=== PATIENT | female | born 1955 | race Caucasian/White ===

== ENCOUNTER → 2016-08-17 | Outpatient (CLI) | payer OTHER ==
[~2016-08-17] MED LIST: CLB/200 PO; FERR325T51 PO; FRS/40 PO; GADAVIST IV PRN; LOSA50TA6 PO; MULT-506 PO; PRLSR20 PO
--- NOTE | 2016-08-17 08:04 | DIAGNOSTIC IMAGING REPORT ---
MRI chest, dimension CHEST COMBO CLINICAL HISTORY: MUSCLE Weakness, r ARM ATROPHY neuropathy TECHNIQUE: Multi axial MRI acquisition pre and postcontrast administration COMPARISON STUDY: None FINDINGS: Signal characteristics of all major soft tissue and osseous structures of the upper chest are unremarkable. Visualized components of the brachial plexus are unremarkable. Muscular structures appear symmetric. There is no evidence for abnormal mass or collection. There is no significant axillary adenopathy. Postcontrast images are considered negative for abnormal postcontrast enhancement. Pulmonary apices are considered clear. IMPRESSION: Negative study Electronically signed by: Sarwat Rogers M.D. 08/17/2016 8:03 AM Dictated Date/Time: 08/17/2016 7:58 AM
== END | disposition home or self-care (01) ==
LOC: C.MRIBC 06:35
PROVIDERS: ATTEND Psychiatry & Neurology Neurology
DX: M62.81 Muscle weakness (generalized) (principal)

== ENCOUNTER 2017-09-13 09:56 | Emergency (ER) | payer OTHER ==
[~2017-09-13] VITALS: Ht 167.6 cm; Wt 144.0 kg
[~2017-09-13 09:56] MED LIST changes: -GADAVIST IV PRN
[2017-09-13 10:01] VITALS: TEMP 36.9; Ht 167.6 cm; Wt 144.0 kg
[2017-09-13] MEDS ORDERED: LIDOCAINE/EPINEPHRINE 1% 20 ML VIAL INFIL ONE (10:15)
[2017-09-13] MEDS ORDERED: RANI150T85 PO (10:43)
[2017-09-13] MEDS ORDERED: FRRS300 PO (10:43)
--- NOTE | 2017-09-13 11:11 | DIAGNOSTIC IMAGING REPORT ---
HEAD WITHOUT CONTRAST (CT) CLINICAL HISTORY: 62 years-old Female presenting with fall . TECHNIQUE: Multidetector CT imaging of the head was performed without the use of intravenous contrast. IV contrast: None. A dose lowering technique was used consistent with the principles of ALARA (as low as reasonably achievable). COMPARISON: None. CT DOSE (mGy.cm): The estimated cumulative dose is 690.05 mGycm. FINDINGS: Produce Department Supervisor topogram: Unremarkable. Ventricles and sulci normal in size. Brain parenchyma normal in appearance with preserved cardenas-white differentiation. No mass effect or midline shift. No hemorrhage or acute territorial infarct. No extra-axial fluid collection. Paranasal sinuses and mastoid air cells clear. Calvarium intact. IMPRESSION: 1. No acute intracranial abnormality. Electronically signed by: Tay Joshi M.D. 09/13/2017 11:10 AM Dictated Date/Time: 09/13/2017 11:08 AM
--- NOTE | 2017-09-13 11:13 | DIAGNOSTIC IMAGING REPORT ---
CT OF THE CERVICAL SPINE CLINICAL HISTORY: Neck pain status post trauma COMPARISON STUDY: No previous studies for comparison. CT DOSE: 446.00 mGycm TECHNIQUE: CT scan of the cervical spine was performed from the skull base to the thoracic inlet. Images are reviewed in the axial, sagittal, and coronal planes. IV contrast was not administered for this examination. A dose lowering technique was utilized adhering to the principles of ALARA. FINDINGS: The visualized portions of the lung apices reveal no evidence of pneumothorax. There is a minimal right mastoid effusion. There is a small calcification anterior to the medulla, possibly vascular. The prevertebral soft tissues are normal. No fractures or subluxations are visualized. There are multilevel degenerative changes. There are calcifications within the ligamentum nuchae. IMPRESSION: No evidence of acute fracture or traumatic subluxation. Electronically signed by: Con White M.D. 09/13/2017 11:12 AM Dictated Date/Time: 09/13/2017 11:09 AM
[2017-09-13 12:15] VITALS: BP 203/93; PULSE 87; O2SAT 93
[2017-09-13] MEDS ORDERED: DIPHTHERIA/TETANUS/PERTUSSIS 0.5 ML SYR/VIAL IM. ONE (12:15)
--- NOTE | 2017-09-13 15:01 | EMERGENCY ROOM VISIT NOTE ---
History Report prepared by Geraldoibjohnson: Miki Negrete Under the Supervision of: Dr. Abdon Leong D.O. First contact with patient: 09:59 Chief Complaint: FALL Stated Complaint: FALL/LACERATION History of Present Illness The patient is a 62 year old female who presents to the Emergency Room with complaints of constant head pain s/p fall occurring just prior to arrival. She rates her pain as a 7/10 in severity. Pain is sharp in nature. The patient has a history of ALS, and has chronic right sided weakness. She was initially diagnosed 11 months ago, and has been having worsened weakness ever since. The patient states that she was walking at [facility] when she fell. She states that her right leg gave out on her, which is fairly normal for her. She states that she landed on her head, but did not lose consciousness. Pt denies neck pain, change in vision, fevers, chest pain, shortness of breath, nausea, vomiting, diarrhea, pain with urination, and melena. Source of History: patient Onset: Just prior to arrival Position: head Symptom Intensity: 7/10 Timing: constant Associated Symptoms: No LOC, No neck pain, No chest pain, No SOB, No nausea , No vomiting, No melena, No diarrhea, No urinary symptoms Review of Systems See HPI for pertinent positives & negatives. A total of 10 systems reviewed and were otherwise negative. Past Medical & Surgical Medical Problems: (1) ALS (amyotrophic lateral sclerosis) Family History No pertinent family history stated. Social History Smoking Status: Never Smoker Housing Status: lives with family Current/Historical Medications Scheduled Celecoxib (CeleBREX), 200 MG PO HS Ferrous Sulfate (Ferrous Sulfate), 325 MG PO WK Furosemide (Lasix), 40 MG PO HS Losartan Potassium (Cozaar), 50 MG PO HS Multivitamin (Multivitamin), 1 TAB PO HS Ranitidine (Zantac), 150 MG PO DAILY@1600 Allergies Coded Allergies: CARLOS Inhibitors (Verified Allergy, Mild, UNKNOWN, 09/13/17) Fluconazole (Unverified Allergy, Unknown, ., 09/13/17) Physical Exam Vital Signs Date Time Temp Pulse Resp B/P (MAP) Pulse Ox O2 Delivery O2 Flow Rate FiO2 09/13/17 12:15 87 203/93 93 Room Air 09/13/17 10:42 52 20 192/98 97 09/13/17 10:01 36.9 67 18 194/123 97 Physical Exam GENERAL: alert, well appearing, well nourished, no distress, non-toxic HEAD: normal cephalic. 5 cm laceration with venous oozing over the right forehead. EYE EXAM: normal conjunctiva, PERRL and EOM's grossly intact OROPHARYNX: no exudate, no erythema, lips, buccal mucosa, and tongue normal and mucous membranes are moist EARS: TMs clear b/l NECK: supple, no nuchal rigidity, no adenopathy, non-tender CHEST: stable to compression anteriorly and posteriorly LUNGS: clear to auscultation. Normal chest wall mechanics HEART: no murmurs, S1 normal and S2 normal ABDOMEN: abdomen soft, non-tender, normo-active bowel sounds, no masses, no rebound or guarding. PELVIS: stable to compression anteriorly and posteriorly BACK: Back is symmetrical on inspection and there is no deformity, no midline tenderness, no CVA tenderness. UPPER EXTREMITIES: full active and passive range of motion of all joints without tenderness to palpation LOWER EXTREMITIES: full active and passive range of motion of all joints without tenderness to palpation NEURO EXAM: Normal sensorium, cranial nerves II-XII grossly intact, normal speech, GCS: 15. Weakness with grasp, flexion, extension of the right upper and lower extremity. Medical Decision & Procedures ER Provider Diagnostic Interpretation: Radiology results as stated below per my review and the radiologist's interpretation: HEAD WITHOUT CONTRAST (CT) FINDINGS: Wet Process Miller topogram: Unremarkable. Ventricles and sulci normal in size. Brain parenchyma normal in appearance with preserved cardenas-white differentiation. No mass effect or midline shift. No hemorrhage or acute territorial infarct. No extra-axial fluid collection. Paranasal sinuses and mastoid air cells clear. Calvarium intact. IMPRESSION: 1. No acute intracranial abnormality. Electronically signed by: Tay Joshi M.D. 09/13/2017 11:[address] OF THE CERVICAL SPINE FINDINGS: The visualized portions of the lung apices reveal no evidence of pneumothorax. There is a minimal right mastoid effusion. There is a small calcification anterior to the medulla, possibly vascular. The prevertebral soft tissues are normal. No fractures or subluxations are visualized. There are multilevel degenerative changes. There are calcifications within the ligamentum nuchae. IMPRESSION: No evidence of acute fracture or traumatic subluxation. Electronically signed by: Con White M.D. 09/13/2017 11:12 AM Medications Administered Medications (Trade) Dose Ordered Sig/Thalia Route Start Time Stop Time Status Last Admin Dose Admin Diphtheria/ Pertussis/Tetanus Vacc (Adacel Inj) 0.5 ml ONCE ONCE IM. 09/13/17 12:15 09/13/17 12:16 DC 09/13/17 12:41 0.5 ML ED Course ED COURSE: Vital signs were reviewed and showed hypertension The patients medical record was reviewed The above diagnostic studies were performed and reviewed. ED treatments and interventions as stated above. 1005: The patient was evaluated in room B8. A complete history and physical examination was performed. 1015: Ordered Xylocaine/Epine 1% Inj 20 mL INFIL. 1026: I checked in on the patient. She is having her laceration repaired. 1150: Upon reevaluation, the patient is resting comfortably. I discussed my findings with the patient and she understands and agrees with the treatment plan. Based on the patients age, coexisting illnesses, exam and lab findings the decision to treat as an outpatient was made. The patient remained stable while under my care. The patient appeared well at the time of discharge. Medical Decision Differential diagnoses include major intracranial, cervical, spinal, thoracic, abdominal, pelvic and neurologic injury. Fracture, contusion, sprain, strain, laceration, abrasions included as well. Patient is a 62-year-old female who presents the ER following a mechanical fall at [facility]. She has a chronic right-sided weakness due to ALS. Nothing has changed. Sutures were placed for laceration on the right forehead. This was updated. CTs of the head and cervical spine were negative. Patient had no other complaints. Offered x-rays of the right knee which had a small contusion on repeat evaluation. They declined. Patient was discharged with walker to follow-up with PCP as an outpatient. She does normally use a walker had no problem ambulating within the room. Discussed with Pt concerning signs and symptoms to watch out for. Pt was instructed to follow up with their PCP and discussed with the patient their option to return to the ED at anytime for persistent or worsening symptoms. The appropriate anticipatory guidance and out- patient management, including indications for return to the emergency department , were explained at length to the patient and understood. Medication Reconcilliation Current Medication List: was personally reviewed by me Blood Pressure Screening Patient's blood pressure: Elevated blood pressure Blood pressure disposition: Referred to PCP Impression Primary Impression: Fall Additional Impression: Laceration of head Scribe Attestation The scribe's documentation has been prepared under my direction and personally reviewed by me in its entirety. I confirm that the note above accurately reflects all work, treatment, procedures, and medical decision making performed by me. Departure Information Dispostion Home / Self-Care Referrals Heidi Ireland D.O. (PCP) Forms HOME CARE DOCUMENTATION FORM, IMPORTANT VISIT INFORMATION Patient Instructions ED Laceration All, Falls Prevent Home, [facility] Additional Instructions Please follow up with your primary care doctor with in the next 24 hours. Any worsening of your symptoms, please return to the ED immediately. This includes any fevers greater than 100.4, worsening pain, chest pain, shortness breath, persistent nausea, vomiting, unable to eat or drink, or any other concerning signs or symptoms from your standpoint. Please have sutures removed within 7 days. Any surrounding erythema/redness, increased swelling, drainage please return to the ER for evaluation. Problem Qualifiers Primary Impression: Fall Encounter type: initial encounter Qualified Codes: W19.XXXA - Unspecified fall, initial encounter Additional Impression: Laceration of head Encounter type: initial encounter Location of open wound of head: unspecified part of head Foreign body presence: without foreign body Qualified Codes: S01.91XA - Laceration without foreign body of unspecified part of head, initial encounter
--- NOTE | 2017-09-14 07:51 | EMERGENCY ROOM VISIT NOTE ---
ED Visit Note 62-year-old female who I was asked by Dr. Leong, ED attending physician, to perform a right forehead laceration repair. Please see his dictation for further treatment and final disposition. PROCEDURE NOTE: Examination of the right forehead region shows a 5 cm laceration with moderate oozing. No hematoma formation noted. The patient provided verbal consent for laceration repair under local anesthesia. Using lidocaine 1% with epinephrine, good local anesthesia was administered. Exploration of the wound does not show any active bleeding, but otherwise generalized venous oozing. No foreign debris is noted. After thoroughly irrigating the wound, the wound was then approximated using 5-0 nylon simple interrupted sutures. A bacitracin pressure dressing was applied. The patient tolerated the procedure well with minimal bleeding from the procedure itself. She did have a moderate amount of bleeding prior to my procedure.
== END 2017-09-13 12:30 | disposition home or self-care (01) ==
LOC: C.EDB 09:56
DX: S01.81XA Laceration without foreign body of other part of head, initial encounter (principal); W19.XXXA Unspecified fall, initial encounter; Y92.512 Supermarket, store or market as the place of occurrence of the external cause; G12.21 Amyotrophic lateral sclerosis; Z79.899 Other long term (current) drug therapy; Z88.8 Allergy status to other drugs, medicaments and biological substances

== ENCOUNTER 2019-03-28 23:37 | Inpatient (IN) ==
[2019-03-28] MEDS ORDERED: SODIUM CHLORIDE 0.9% 1000ML 1,000 ML IV SCH (23:45)
[2019-03-29 00:55] LABS: Basophils # (auto) 0.02 K/uL (0-0.2); Basophils % (auto) 0.3 %; Eosinophils # (auto) 0.01 K/uL (0-0.5); Eosinophils % (auto) 0.2 %; Hematocrit (blood only) 45.9 % (37-47); Hemoglobin 15.7 g/dL (12.0-16.0); Immature Granulocytes # (auto) 0.11 K/uL (0.00-0.02); Immature Granulocytes % (auto) 1.7 %; Lymphocytes # (auto) 0.67 K/uL (1.2-3.4); Lymphocytes % (auto) 10.1 %; Mean Corpuscular Hgb Conc 34.2 g/dL (32-36); Mean Corpuscular Volume 93.5 fL (80-100); Monocytes # (auto) 0.49 K/uL (0.11-0.59); Monocytes % (auto) 7.4 %; Neutrophils # (auto) 5.31 K/uL (1.4-6.5); Neutrophils % (auto) 80.3 %; Platelet Count 248 K/uL (130-400); RDW Coefficient of Variation 14.8 % (11.5-14.5); RDW Standard Deviation 50.8 fL (36.4-46.3); Red Blood Count 4.91 M/uL (4.2-5.4); White Blood Count 6.61 K/uL (4.8-10.8)
[2019-03-29 01:20] LABS: Albumin Globulin Ratio 0.8 (0.9-2); Albumin Level 2.8 gm/dl (3.4-5.0); BUN Creatinine Ratio 33.7 (10-20); Calcium 8.8 mg/dl (8.5-10.1); Creatinine Clr Calc Pharmacy 115.4 ml/min; Est GFR (African American) 112.9; Est GFR (Non-African American) 97.4; Globulin 3.5 gm/dl (2.5-4.0); Magnesium 2.2 mg/dl (1.8-2.4); Potassium 2.6 mmol/L (3.5-5.1); Total Protein 6.3 gm/dl (6.4-8.2)
[2019-03-29 01:36] LABS: Thyroid Stimulating Hormone 1.12 uIu/ml (0.300-4.500); Troponin I 0.078 ng/ml (0-0.045)
[2019-03-29 02:14] LABS: Appearance Urine Clear (Clear); Blood Urine Trace (Negative); Color Urine Amber; Glucose Urine UA Trace (Negative); Leukocyte Esterase Urine Trace (Negative); Nitrite Urine Positive (Negative); Protein Urine 2+ (Negative); Urobilinogen Urine Positive (Negative); pH Urine 6.5 (4.5-7.5)
[2019-03-29 02:19] LABS: Bilirubin Urine 3+ (Negative); Ictotest Urine Positive (Negative)
[2019-03-29 02:20] LABS: Ketones Urine 3+ (Negative)
[2019-03-29 02:28] LABS: Bacteria Urine 2+ (Negative); Epithelial Cell Urine 20-30 /lpf (0-5); Hyaline Casts Urine 0-5 /lpf (0-5); RBC Urine 0-4 /hpf (0-4)
[2019-03-29] MEDS ORDERED: cefTRIAXone SODIUM 2,000 MG/70 ML BAG IV STA (02:41)
[2019-03-29] MEDS ORDERED: POTASSIUM CHLORIDE 20 MEQ TABCR PO STA (03:35)
[2019-03-29 04:03] LABS: Partial Thromboplastin Time 28.2 Seconds (21.0-31.0)
--- NOTE | 2019-03-29 04:20 | History & Physical Report ---
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 intake secondary to patient's unhappiness over recent pured diet change given aspiration concerns. chronic diastolic heart failure (EF 55%, TTE 2018), patient clinically dry hypertension, slight elevation at the ER (patient refusing home meds the last few weeks as per records) Troponin elevation possibly secondary to above ALS, progression over the last few weeks Possible suicidality [verbalized suicidality by patient yesterday as per SNF account; unexplained ecchymosis forehead (?self-inflicted); patient unable to corroborate suicidality allegations given encephalopathy at time of exam) Medical telemetry Follow urine cultures, IV Ceftriaxone Dextrose water IVF, replace potassium Monitor BP, initiate clonidine patch if still uncontrolled Follow troponin Psych consult RE possible suicidality, suicide precautions for now Consider inpatient palliative care consult for progressive ALS if patient and family agreeable once mentation back to baseline DVT prophylaxis. Lovenox subcu DNR as per patient previous wishes as per [facility] Attempted to call patient's sister/POA (Ms. Nilda Don, contact #[phone]) over the phone to give update on plan of care. No answer; left voice message for call back. History of Present Illness Chief Complaint: Suicidality as per records Primary Care Provider: Alfonso [facility] History obtained from patient, [facility] staff , and records. Limited history from patient given disoriented and almost nonverbal state. 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 Recent confinement last April 2018 for ambulatory dysfunction secondary to progressive ALS. Patient discharged to [facility] SNF. As per [facility] animal humane agent supervisor, patient upset the last few weeks because of ALS progression. Pured diet recommended because of aspiration risk. Patient has been refusing her home meds the last few weeks as per records. Yesterday, patient verbalized to staff that she wanted to kill herself and that she had a plan. Patient sent to the ER for evaluation. Patient noted to be disoriented at the ER. Given IV ceftriaxone for possible UTI. Aspiration concerns from RAILROAD OPERATOR after attempt to give oral potassium replacement. Medical History as above Seen by [facility] last January 2019 outpatient for stool in the vagina since December 2018. 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 CT abdomen/pelvis IV and rectal contrast recommendation to be done at a hospital secondary to patient's comorbidities pending scheduling as per outpatient notes. 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 Allergies Allergy/AdvReac Type Severity Reaction Status Date / Time CARLOS Inhibitors Allergy Mild UNKNOWN Verified 03/29/19 02:33 fluconazole Allergy Unknown ON Verified 03/29/19 02:33 HEARTHSIDE LIST Home Medications Home Medications Medication Instructions Recorded Confirmed Type Barrier Cream 1 applic TOPICAL TID 03/29/19 03/29/19 History acetaminophen 650 mg PO Q6H PRN 03/29/19 03/29/19 History acetaminophen 650 mg PO Q8 PRN 03/29/19 03/29/19 History aspirin [Aspirin Childrens] 81 mg PO DAILY 03/29/19 03/29/19 History atorvastatin 40 mg PO DAILY 03/29/19 03/29/19 History bisacodyl [Dulcolax (bisacodyl)] 10 mg [place] DAILY PRN 03/29/19 03/29/19 History celecoxib [Celebrex] 200 mg PO DAILY 03/29/19 03/29/19 History ferrous sulfate 325 mg PO WK 03/29/19 03/29/19 History food supplemt, lactose-reduced 1 ea PO .DAILY AT 1500 03/29/19 03/29/19 History [Boost] furosemide [Lasix] 20 mg PO DAILY 03/29/19 03/29/19 History losartan [Cozaar] 50 mg PO DAILY 03/29/19 03/29/19 History magnesium hydroxide [Milk of 30 ml PO DAILY PRN 03/29/19 03/29/19 History Magnesia] magnesium oxide 400 mg PO DAILY 03/29/19 03/29/19 History meclizine 25 mg PO TID PRN 03/29/19 03/29/19 History multivit,stress formula-zinc 1 tab PO DAILY 03/29/19 03/29/19 History [Stress Formula with Zinc] multivitamin,tx-minerals 1 cap PO DAILY 03/29/19 03/29/19 History [Multi-Vitamin HP/Minerals] ostomy supplies [Skin Prep Wipes] 03/29/19 03/29/19 History phenol [Chloraseptic Throat [place]] 1 spray MUCOUS MEMBRANE Q8 PRN 03/29/19 03/29/19 History polyethylene glycol 3350 [Miralax] 17 g PO Q OTHER DAY 03/29/19 03/29/19 History ranitidine HCl 150 mg PO DAILY 03/29/19 03/29/19 History scopolamine base [Transderm-Scop] 1 patch TRANSDERMAL Q3D 03/29/19 03/29/19 History sennosides-docusate sodium 1 tab PO BID 03/29/19 03/29/19 History [Senna-S] sodium phosphates [Fleet Enema] 118 ml [place] DAILY PRN 03/29/19 03/29/19 History Past Med/Surg History Medical History Osteoarthritis (Chronic) Diastolic heart failure (Chronic) HTN (hypertension) (Chronic) ALS (amyotrophic lateral sclerosis) (Chronic) Surgical History History of bilateral breast reduction surgery (Resolved) History of right oophorectomy (Resolved) Hx laparoscopic cholecystectomy (Resolved) History of endometrial ablation (Resolved) Family History Other No significant family history Social History Preferred Language: Vietnamese Communication Ability: Unable Communication Ability Comment: mostly nonverbal. hx ALS Visual Impairment: No Limitations Bulk Delivery Driver Required: No Beliefs That Will Affect Care: None marital status: Single Current Living Situation: Senior Care current occupational status: unemployed Feels Safe at Home: Yes Smoking Status: Unknown if ever smoked Hx Alcohol Use: No Hx Substance Use: No Review of Systems Review of Systems: Could not be reliably obtained Physical Exam Physical Exam: GENERAL: Disoriented, occasional grunting, no respiratory distress, obese SKIN: Normal color, warm HEENT: Ecchymosis frontal area, pink palpebral conjunctivae, no ptosis, dry buccal mucosa NECK : Supple, short neck, no tenderness CHEST : Decreased breath sounds, no tenderness HEART : RRR, no obvious murmurs ABDOMEN: Some distention, nontender EXTREMITIES : Minimal LE swelling, no LE tenderness, no other conspicuous deformities noted NEUROLOGIC : incoherent, no facial asymmetry, gait and stance not assessed. Results & Data Vital Signs (Past 12 Hours) Vital Signs Temp Pulse Pulse Resp BP BP Pulse Ox 03/29/19 04:13 101 H 20 155/98 H 94 03/29/19 02:07 93 H 20 128/81 98 03/28/19 23:53 36.8 C 89 89 16 128/73 128/73 94 Laboratory Results Laboratory Results WBC 6.61 K/uL (4.8-10.8) 03/29/19 00:38 RBC 4.91 M/uL (4.2-5.4) 03/29/19 00:38 Hgb 15.7 g/dL (12.0-16.0) 03/29/19 00:38 Hct 45.9 % (37-47) 03/29/19 00:38 MCV 93.5 fL (80-100) 03/29/19 00:38 MCH 32.0 pg (25-34) 03/29/19 00:38 MCHC 34.2 g/dL (32-36) 03/29/19 00:38 RDW Std Deviation 50.8 fL (36.4-46.3) H 03/29/19 00:38 RDW Coeff of Noris 14.8 % (11.5-14.5) H 03/29/19 00:38 Plt Count 248 K/uL (130-400) 03/29/19 00:38 MPV 10.0 fL (7.4-10.4) 03/29/19 00:38 Immature Gran % (Auto) 1.7 % 03/29/19 00:38 Neut % (Auto) 80.3 % 03/29/19 00:38 Lymph % (Auto) 10.1 % 03/29/19 00:38 [place] % (Auto) 7.4 % 03/29/19 00:38 Eos % (Auto) 0.2 % 03/29/19 00:38 Baso % (Auto) 0.3 % 03/29/19 00:38 Immature Gran # (Auto) 0.11 K/uL (0.00-0.02) H 03/29/19 00:38 Neut # (Auto) 5.31 K/uL (1.4-6.5) 03/29/19 00:38 Lymph # (Auto) 0.67 K/uL (1.2-3.4) L 03/29/19 00:38 [place] # (Auto) 0.49 K/uL (0.11-0.59) 03/29/19 00:38 Eos # (Auto) 0.01 K/uL (0-0.5) 03/29/19 00:38 Baso # (Auto) 0.02 K/uL (0-0.2) 03/29/19 00:38 APTT 28.2 Seconds (21.0-31.0) 03/29/19 00:38 PTT Ratio 1.0 03/29/19 00:38 Sodium 151 mmol/L (136-145) H 03/29/19 00:38 Potassium 2.6 mmol/L (3.5-5.1) L 03/29/19 00:38 Chloride 110 mmol/L (98-107) H 03/29/19 00:38 Carbon Dioxide 32 mmol/L (21-32) 03/29/19 00:38 Anion Gap 9.0 (3-11) 03/29/19 00:38 BUN 20 mg/dl (7-18) H 03/29/19 00:38 Creatinine 0.58 mg/dl (0.6-1.2) L 03/29/19 00:38 Est Cr Clr Drug Dosing 115.4 ml/min 03/29/19 00:38 Est GFR ( Amer) 112.9 03/29/19 00:38 Est GFR (Non-Af Amer) 97.4 03/29/19 00:38 BUN/Creatinine Ratio 33.7 (10-20) H 03/29/19 00:38 Glucose 98 mg/dl (70-99) 03/29/19 00:38 Calcium 8.8 mg/dl (8.5-10.1) 03/29/19 00:38 Magnesium 2.2 mg/dl (1.8-2.4) 03/29/19 00:38 Total Bilirubin 2.0 mg/dl (0.2-1) H 03/29/19 00:38 AST 20 U/L (15-37) 03/29/19 00:38 ALT 13 U/L (12-78) 03/29/19 00:38 Alkaline Phosphatase 128 U/L (45-117) H 03/29/19 00:38 Troponin I 0.078 ng/ml (0-0.045) H* 03/29/19 00:38 Total Protein 6.3 gm/dl (6.4-8.2) L 03/29/19 00:38 Albumin 2.8 gm/dl (3.4-5.0) L 03/29/19 00:38 Globulin 3.5 gm/dl (2.5-4.0) 03/29/19 00:38 Albumin/Globulin Ratio 0.8 (0.9-2) L 03/29/19 00:38 Lipase 44 U/L (73-393) L 03/29/19 00:38 TSH 1.120 uIu/ml (0.300-4.500) 03/29/19 00:38 Urine Color Antonia 03/29/19 02:00 Urine Appearance Clear (Clear) 03/29/19 02:00 Urine pH 6.5 (4.5-7.5) 03/29/19 02:00 Ur Specific [place] 1.020 (1.000-1.030) 03/29/19 02:00 Urine Protein 2+ (Negative) H 03/29/19 02:00 Urine Glucose (UA) Trace (Negative) H 03/29/19 02:00 Urine Ketones 3+ (Negative) H 03/29/19 02:00 Urine Blood Trace (Negative) H 03/29/19 02:00 Urine Nitrite Positive (Negative) A 03/29/19 02:00 Urine Bilirubin 3+ (Negative) H 03/29/19 02:00 Urine Urobilinogen Positive (Negative) H 03/29/19 02:00 Ur Leukocyte Esterase Trace (Negative) H 03/29/19 02:00 Urine RBC 0-4 /hpf (0-4) 03/29/19 02:00 Urine WBC 5-10 /hpf (0-5) H 03/29/19 02:00 Ur Epithelial Cells 20-30 /lpf (0-5) H 03/29/19 02:00 Urine Bacteria 2+ (Negative) H 03/29/19 02:00 Hyaline Casts 0-5 /lpf (0-5) 03/29/19 02:[address] head initial read: No acute intracranial hemorrhage, skull fracture CXR as per my interpretation: Cardiomegaly, atelectasis EKG as per my interpretation : Rate 90, NSR, normal axis, LVH, ST depression lateral leads, inferior infarct, PVCs
[2019-03-29] MEDS: POTASSIUM CHLORIDE / WTR 10 MEQ/100 ML PLCT IV SCH ×8 (04:23→16:08)
[2019-03-29] MEDS ORDERED: METOPROLOL TARTRATE 1 MG/ML VIAL IV STA (04:40)
[2019-03-29 04:58] LABS: Troponin I 0.071 ng/ml (0-0.045)
[2019-03-29] MEDS ORDERED: NITROGLYCERIN SL 0.4 MG/TAB TAB SL PRN (06:00)
[2019-03-29] MEDS ORDERED: POTASSIUM CHLORIDE 40 MEQ in DEXTROSE 5% 1,000 ML IV SCH (06:00)
[2019-03-29] MEDS ORDERED: PROMETHAZINE HCL 12.5 MG in SODIUM CHLORIDE 0.9% 50 ML IV PRN (06:00)
[2019-03-29] MEDS ORDERED: ACETAMINOPHEN 325 MG TAB PO PRN (06:00)
--- NOTE | 2019-03-29 07:10 | CT Scan Report ---
CT SCAN OF THE BRAIN WITHOUT IV CONTRAST CLINICAL HISTORY: Trauma. Fall. COMPARISON STUDY: CT of the brain dated 04/25/2018. TECHNIQUE: Unenhanced axial CT scan of the brain is performed from the vertex to the skull base. A d ose lowering technique was utilized adhering to the principles of ALARA. CT DOSE: 626.55 mGy.cm FINDINGS: Brain parenchyma: The brain parenchyma is normal in appearance. There is no hemorrhage, mass effect, or evidence of acute territorial ischemia by CT criteria. Edwards-white matter differentiation is preser yared. No extra-axial fluid collection is seen. Ventricles, sulci, cisterns: Normal in configuration. Intracranial vasculature: The visualized intracranial vasculature at the skull base is normal in appe arance. Calvarium: There is no depressed calvarial fracture. Sinuses and mastoids: The visualized paranasal sinuses are clear. The mastoid air cells are well pneu matized. Orbits: The bony orbits are grossly intact. IMPRESSION: There is no hemorrhage, mass effect, or evidence of acute territorial ischemia by CT anand salgado. Electronically signed by: Mickey Schroeder M.D. 03/29/2019 7:09 AM
--- NOTE | 2019-03-29 07:35 | XRay Report ---
XR chest 1V portable HISTORY: Altered mental status. COMPARISON: Chest 04/26/2018. FINDINGS: No pneumothorax. No pleural effusions. The heart remains mildly enlarged. There are few lori ear densities within the left mid to lower lung zone and right lung base. This has progressed but fav or subsegmental atelectasis. No evidence for pulmonary edema. Prior cholecystectomy. IMPRESSION: 1. A few linear densities within the left midlung zone and lung bases which has slightly progressed. This favors subsegmental atelectasis. 2. Stable cardiomegaly. Electronically signed by: Donn Conti M.D. 03/29/2019 7:33 AM
[2019-03-29] MEDS: ENOXAPARIN INJ 30 MG/0.3 ML SYR SQ SCH (07:47)
[2019-03-29] MEDS ORDERED: MICONAZOLE NITRATE POWDER 43 GM EXT PRN (07:59)
[2019-03-29] MEDS ORDERED: INFLUENZA ADMINISTRATION CHARGE ONE (08:00)
[2019-03-29] MEDS ORDERED: INFLUENZA VIRUS QUAD VACCINE 0.5 ML SYR IM ONE (08:00)
--- NOTE | 2019-03-29 10:06 | Psychiatric Consultation ---
Date of Consultation March 29, 2019 Impression / Recommendations Impression 63-year-old female admitted medically on 03/29/19 due to []. Psychiatric nurse liaison had a chance to speak with the patient's sister/POA prior to this provider's assessment. See liaison note for full details. In summary, []. Psychiatric nurse liaison is planning to call [facility] to gather additional information from their field assessment, as situation leading to concerns of suicidality remains unclear. Due to patient's neuromuscular disorder, it is difficult to obtain clear affirmation or denial of current suicidality. Pt is reportedly non-verbal, and it is this provider's perception that her inflection with which she responds to questions in the affirmative was not significantly different than her negative response to inquiries. Since it cannot be clearly determined if patient is actively suicidal, her situation becomes one of managing risks. It is unfortunate, but her physical condition does not seem to be one that would permit her to demonstrate active behavior that would risk significant harm or . Mental health laws require consideration of the least restrictive setting that can adequately manage the patient's safety concerns - and at this time it is believed that the least restrictive discharge setting that could adequately manage her mental health needs would be returning [facility]. It is perceived that the deeper issue at this time is the transition to an assisted living setting and reported difficulty with nutritional intake and medication compliance due to risk of aspiration. The intent of refusing food/medications (as per sister), was reported to be more directly related to discomfort and choking than an intent to end her life. With this report, it would be recommended that the issue be pursued with discussion of interventions that can improve patient's quality of life (PICC line, speech therapy evaluation, etc), which of course would need to be discussed with the family. Pt has reportedly requested DNR/DNI status, per [facility] - and in the absence of clear suicidal intent (as well as reported mechanical difficulties), it does not seem appropriate to pursue medications or nutritional intake against patient's wishes. Could consider palliative care consultation if this is considered to be a significant concern for ongoing treatment. Based on limited perceived risk of harm to self or others, no previous psychiatric history, no prior suicide attempts, and supports who verbalize limited concern for the patient's safety, it does not seem appropriate to pursue inpatient psychiatric treatment at this time. Pt's sister/POA denied any significant mood concerns, and in combination with mechanical difficulties with medications/food, it does not seem necessary to begin psychiatric medications at this point in her hospitalization - if even indicated at all. Given limited physical capabilities and proximity of patient's room to nursing area, it would seem reasonable to discontinue 1:1 observation as it relates to suicide precautions. Will continue to be available for any additional questions regarding the patient's treatment plan. Dr. Nahun Morocho was directly involved in review and discussion of the patient's case and participated in medical decision making regarding treatment recommendations. Psych History Identifying Data 63-year-old female admitted medically on 03/29/19 due to suicidality as reported by staff at [facility]. [facility] assessment was reportedly completed in the field. Pt is being treated medically for encephalopathy, believed to be due to complicated UTI, hypernatremia, hypokalemia, and medication refusal. Psychiatric consultation is requested to assess patient for "possible suicidality." Information is gathered largely from hospital documentation and conversation between nurse liaison and patient's sister/POA. Pt presents in a nearly non-verbal state, and therefore is unable to supply her own history. Chief Complaint Pt is reportedly nonverbal. She acknowledges this provider's presence, and moans as a response to greeting. History of Present Illness Lynn Mahajan is a 63-year-old female admitted medically on 03/29/19 due to concerns from staff at [facility] about suicidality. It was reported that the patient has not been eating or drinking. H&P suggests that the patient's meal thickness has been adjusted to reduce risk of aspiration, and that this may be contributing to her refusal of meals. It is also reported that the patient has been upset about the progression of her ALS. Pt has a PMH of diastolic heart failure, HTN, and ALS. She is being treated medically for encephalopathy, which may be related to a complicated UTI, hypernatremia, and hypokalemia. Patient's case was reviewed with psychiatric nurse liaison and psychiatrist. Nurse liaison was able to meet with the patient's sister prior to the patient's psychiatric evaluation - and history was relayed to this provider. Sister reports that the patient has never verbalized suicidality. S he has no prior psychiatric history known to the sister. Sister does admit to several perceived frustrations of the patient's related to her declining health and changes in care being implemented at [facility]. During psychiatric assessment with patient, only the 1:1 sitter is present in room. Pt is awoken from sleep and acknowledges this provider with an audible response, but no clear verbal greeting. Due to progressive ALS, patient is unable to provide clear answers to this provider's questions. Questions were asked and nonverbal cues and inflection of response was observed. It is this provider's opinion that there is not a particularly significant difference between affirmative responses and negative responses to questions when asked. At times, the patient will nod her head yes. There was no consistency observed when asked yes and no questions about changes to living situation, her mood, and presence of suicidal ideation. Pt did attempt to elaborate on some questions, but unfortunately this provider was not able to understand the idea she was trying to express. Pt did appear fatigued and at times was drifting off to sleep during conversation. Ultimately, the patient was limited in her ability to provider history regarding her current admission. Past Psychiatric History Previous Psych History: Per patient's sister, the patient has no psychiatric history. No prior suicide attempts or inpatient psychiatric treatment. To her awareness, she is not on any psychiatric medications and does not meet with provider to discuss her mental health. Allergies Allergy/AdvReac Type Severity Reaction Status Date / Time CARLOS Inhibitors Allergy Mild UNKNOWN Verified 03/29/19 02:33 fluconazole Allergy Unknown ON Verified 03/29/19 02:33 [facility] LIST Home Medications Home Medications Medication Instructions Recorded Confirmed Type Barrier Cream 1 applic TOPICAL TID 03/29/19 03/29/19 History acetaminophen 650 mg PO Q6H PRN 03/29/19 03/29/19 History acetaminophen 650 mg PO Q8 PRN 03/29/19 03/29/19 History aspirin [Aspirin Childrens] 81 mg PO DAILY 03/29/19 03/29/19 History atorvastatin 40 mg PO DAILY 03/29/19 03/29/19 History bisacodyl [Dulcolax (bisacodyl)] 10 mg NH DAILY PRN 03/29/19 03/29/19 History celecoxib [Celebrex] 200 mg PO DAILY 03/29/19 03/29/19 History ferrous sulfate 325 mg PO WK 03/29/19 03/29/19 History food supplemt, lactose-reduced 1 ea PO .DAILY AT 1500 03/29/19 03/29/19 History [Boost] furosemide [Lasix] 20 mg PO DAILY 03/29/19 03/29/19 History losartan [Cozaar] 50 mg PO DAILY 03/29/19 03/29/19 History magnesium hydroxide [Milk of 30 ml PO DAILY PRN 03/29/19 03/29/19 History Magnesia] magnesium oxide 400 mg PO DAILY 03/29/19 03/29/19 History meclizine 25 mg PO TID PRN 03/29/19 03/29/19 History multivit,stress formula-zinc 1 tab PO DAILY 03/29/19 03/29/19 History [Stress Formula with Zinc] multivitamin,tx-minerals 1 cap PO DAILY 03/29/19 03/29/19 History [Multi-Vitamin HP/Minerals] ostomy supplies [Skin Prep Wipes] 03/29/19 03/29/19 History phenol [Chloraseptic Throat [place]] 1 spray MUCOUS MEMBRANE Q8 PRN 03/29/19 03/29/19 History polyethylene glycol 3350 [Miralax] 17 g PO Q OTHER DAY 03/29/19 03/29/19 History ranitidine HCl 150 mg PO DAILY 03/29/19 03/29/19 History scopolamine base [Transderm-Scop] 1 patch TRANSDERMAL Q3D 03/29/19 03/29/19 Hist ory sennosides-docusate sodium 1 tab PO BID 03/29/19 03/29/19 History [Senna-S] sodium phosphates [Fleet Enema] 118 ml [place] DAILY PRN 03/29/19 03/29/19 History Family History Unknown, due to patient's inability to provide history Substance Abuse History Unknown, due to patient's inability to provide history Personal History Living Arrangements: Personal Care Facility (recent transitioned to [facility]; had previously lived with her sister) Patient History Medical History Osteoarthritis (Chronic) Diastolic heart failure (Chronic) HTN (hypertension) (Chronic) ALS (amyotrophic lateral sclerosis) (Chronic) Surgical History History of bilateral breast reduction surgery (Resolved) History of right oophorectomy (Resolved) Hx laparoscopic cholecystectomy (Resolved) History of endometrial ablation (Resolved) Family History Other No significant family history Social History Preferred Language: Y[place]ut Communication Ability: Unable Communication Ability Comment: mostly nonverbal. hx ALS Visual Impairment: No Limitations Dog Catcher Required: No Beliefs That Will Affect Care: None marital status: Single Current Living Situation: Retirement current occupational status: unemployed Feels Safe at Home: Yes Smoking Status: Unknown if ever smoked Hx Alcohol Use: No Hx Substance Use: No Physical Exam Psychiatric: Orientation: alert Unable to assess orientation due to nonverbal status. Apperance: appropriately dressed (in hospital gown), + disheveled and appeared stated age Obese female laying in bed, awoken from sleep. Pt is appropriately dressed in a hospital gown. Short hair is somewhat messy, but level of hygiene/grooming appears adequate for circumstances. Pt does have a large bruise on her forehead. Eye Contact: + fair eye contact Pt appears to be in and out of sleep at times during conversation, eyes appear heavy Motor Behavior: no abnormal motor movements (observed while laying in bed); n tremor Movement is restricted, likely as a result of current level of sedation and as well as motor deficits related to her neuromuscular condition. Speech: + abnormal rate/rhythm/volume of speech Pt is reportedly nonverbal. She responds to questions with moans, and at times moves her mouth as if attempting to form words. Unable to clearly understand any language patient attempts to verbalize during assessment. Affect: + blunted affect; no anxious affect, no tearful affect and no irritable affect Patient does not appear overtly depressed. She was awoken from sleep and does appear sedated and therefore blunted. Unable to accurately gather patient's perception of current mood. Unable to adequately assess thought process due to level of sedation and limited communication ability. Unable to adequately assess thought content due to level of sedation and limited communication ability. Suicidality is unclear, as it is difficult to clearly understand patient's response to this question Insight: + impaired insight Insight may not be altered; however, her ability to communicate and therefore determine level of insight is impaired due to current condition Judgement: + impaired judgement Insight may not be altered; however, her ability to communicate and therefore determine judgment is impaired due to current condition Vital Signs (Past 24 Hours): Last Vital Signs Temp 37.4 C 03/29/19 07:56 Pulse 97 H 03/29/19 07:57 Resp 18 03/29/19 07:56 BP 106/73 03/29/19 07:56 Pulse Ox 94 03/29/19 07:56 Review of Systems Unable to complete thorough ROS due to patient's non-verbal status and level of fatigue. Pt did not verbalize any physical complaints aside from an affirmative response to pain and burning with urination. She did not appear to demonstrate signs of acute distress to indicate any significant physical concerns. Results & Data Medications Administered Enoxaparin Sodium (Lovenox) 30 mg SQ QAM [facility] Stop: 04/28/19 08:59 Last Admin: 03/29/19 07:47 Dose: 30 mg Documented by: [id number]
[2019-03-29 13:01] LABS: BUN Creatinine Ratio 42.1 (10-20); Calcium 8.4 mg/dl (8.5-10.1); Creatinine Clr Calc Pharmacy 151.2 ml/min; Est GFR (African American) 123.6; Est GFR (Non-African American) 106.7
[2019-03-29 13:23] LABS: Potassium 3.1 mmol/L (3.5-5.1)
--- NOTE | 2019-03-29 13:56 | Hospitalist Progress Note ---
Date of Service March 29, 2019 Assessment & Plan (1) UTI (urinary tract infection): Rocephin started empirically. Will de-escalate antibiotics pending urine culture and clinical improvement. (2) Elevated troponin: Elevated troponin without accelerated rise, no evidence of ACS. Echocardiogram reveals no segmental left ventricular wall motion abnormalities. There is also no significant valvular pathology and moderate concentric LVH is present. Ejection fraction is 66 5%. ACS is considered less likely. (3) Hypokalemia: Speech determined patient is strict n.p.o. Continue IV replacement for 2 more bags after afternoon K returned to 3.1. Continue IV fluids for support at this point. Monitor BMP in a.m. Magnesium within normal limits. (4) ALS (amyotrophic lateral sclerosis): Progressed, she is currently n.p.o. Palliative is consulted and has tried the sister multiple times who is her power of funeral car chauffeur. The patient is non- verbal and/or making unintelligible sounds. She is not communicating with me or even attempting. I question encephalopathy as she appears to have competence then feign sleeping when asked to do something, but this is of course possible in the setting of urinary tract infection. Sister reported to nurse that she tends to behave this way when things such as food are withheld for safety reasons. Unable to reach the sister today by phone, therefore, will touch base when she visits tomorrow morning. Ideally would like to have an understanding of comfort measures status prior to returning to [facility]. (5) DVT prophylaxis: Lovenox DNR/DNI Disposition-back to [facility] once K has improved and we have sorted out comfort measures status with her sister. Likely able to return tomorrow if these things can be accomplished. Ashanti Beltrán DO [facility] Hospitalist Subjective Fatigued and refuses to respond. Nurse states she has seen the patient awake and attempting to talk and make sounds, however when she walks in the door the patient pretends to be sleeping. Taken off suicide precautions as this seems like the most reasonable thing. Will work with her sister when she calls back or tomorrow regarding the decision on comfort care measures. At this point her ALS has progressed and prognosis is poor, hospice is reasonable Review of Systems Review of Systems: Unobtainable due to cognitive status (Fatigue, lethargic, refused to except respond.) Physical Exam Physical Exam: CONSTITUTIONAL: obese, vitals as above, generally deconditioned and fatigued. EYES: normal conjunctivae, no scleral icterus ENT: MMM RESPIRATORY: very liited exam as she is bedbound and very weak, not awake or following instructions for me. clear to auscultation bilaterally, no crackles, rales or wheezes, normal respiratory effort CARDIOVASCULAR: regular rate and rhythm, S1 and 2 heard without murmurs, gallops or rubs, no JVD, no peripheral edema GASTROINTESTINAL: normal bowel sounds, soft, nontender, nondistended MUSCULOSKELETAL: generalized weakness and deconditioning SKIN: warm and dry NEUROLOGIC: fatigued, cannot assess as somnolent PSYCHIATRIC: fatigued Results & Data Vital Signs (Past 12 Hours) Vital Signs Temp Pulse Pulse Resp BP BP Pulse Ox 03/29/19 07:57 97 H 03/29/19 07:56 37.4 C 88 18 106/73 94 03/29/19 07:22 36.7 C 104 H 20 91/56 L 95 03/29/19 05:35 36.8 C 75 18 116/80 94 03/29/19 05:05 80 20 166/82 H 96 03/29/19 04:13 101 H 20 155/98 H 94 03/29/19 02:07 93 H 20 128/81 98 Laboratory Results Short CBC 03/29/19 Range/Units 00:38 WBC 6.61 (4.8-10.8) K/uL Hgb 15.7 (12.0-16.0) g/dL Hct 45.9 (37-47) % Plt Count 248 (130-400) K/uL BMP 03/29/19 03/29/19 03/29/19 00:38 04:23 12:11 Sodium 151 H 151 H 148 H Potassium 2.6 L 3.1 L D Chloride 110 H 112 H Carbon Dioxide 32 26 BUN 20 H 19 H Creatinine 0.58 L 0.44 L Glucose 98 115 H Calcium 8.8 8.4 L Cardiac Enzymes 03/29/19 03/29/19 Range/Units 00:38 04:23 Troponin I 0.078 H* 0.071 H* (0-0.045) ng/ml Liver Function 03/29/19 Range/Units 00:38 Total Bilirubin 2.0 H (0.2-1) mg/dl AST 20 (15-37) U/L ALT 13 (12-78) U/L Alkaline Phosphatase 128 H (45-117) U/L Albumin 2.8 L (3.4-5.0) gm/dl Urine 03/29/19 Range/Units 02:00 Urine Color Antonia Urine Appearance Clear (Clear) Urine pH 6.5 (4.5-7.5) Ur Specific [facility] 1.020 (1.000-1.030) Urine Protein 2+ H (Negative) Urine Glucose (UA) Trace H (Negative) Medications Administered Current Inpatient Medications Acetaminophen (Tylenol) 650 mg PO Q4H PRN PRN Reason: Pain or Fever Stop: 04/28/19 05:59 Enoxaparin Sodium (Lovenox) 30 mg SQ QAM [facility] Stop: 04/28/19 08:59 Last Admin: 03/29/19 07:47 Dose: 30 mg Documented by: Promethazine HCl 12.5 mg/ (Sodium Chloride) 50.5 mls @ 202 mls/hr IV Q6H PRN PRN Reason: Nausea And Vomiting Stop: 04/28/19 05:59 Ceftriaxone Sodium 2,000 mg/ (Dextrose) 70 mls @ 100 mls/hr IV Q24H [facility]; Protocol Stop: 04/08/19 05:59 Miconazole Nitrate (Desenex) 1 appln EXT PRN PRN PRN Reason: Affected Skin Folds Stop: 04/28/19 07:58 Morphine Sulfate (Morphine Sulfate) 2 mg IV Q4H PRN PRN Reason: Pain Stop: 04/12/19 05:59 Nitroglycerin (Nitrostat) 0.4 mg SL UD PRN PRN Reason: Chest Pain Stop: 04/28/19 05:59 (1) UTI (urinary tract infection) Hematuria presence: with hematuria Urinary tract infection type: acute cystitis Qualified Code(s): N30.01 - Acute cystitis with hematuria
[2019-03-29] MEDS ORDERED: bisacodyL 10 MG SUPP PR PRN (14:16)
--- NOTE | 2019-03-29 14:40 | Palliative Care Consultation ---
Date of Consultation March 29, 2019 Assessment & Plan (1) Goals of care, counseling/discussion: Patient is a 63-year-old female with a past medical history significant for ALS, hypertension, diastolic heart failure and osteoarthritis who was sent in from [facility] for racing suicidal ideation per staff at [facility]. Patient is minimally responsive, unable to answer simple questions, attempted to reach patient's sister, Nilda Don at [phone] separate occasions-left message for her to call and left my cell phone number. Sister had been at bedside earlier this morning-nursing reports that sister stated that patient has been nonverbal for quite some time-not sure how she coul d have voiced intentions to harm herself. Please refer to psychiatry evaluation-due to patient's ALS and increased weakness-it is very unlikely she would be able to harm herself. Patient's last hospitalization was 11 months ago for increased weakness due to her ALS and a fall. Unable to contact sister to determine rate of recent decline. Patient had been refusing meds at the [facility], she had decreased p.o. intake -it was reported that she did not care for pured diet which was recently changed due to increased dysphasia. On admission patient's sodium was 151, potassium 2.6, BUN 20 with a creatinine of 0.58. Patient's albumin was 2.8 and TSH was within normal limits. Patient's chest x-ray as well as head CT were negative. UA is positive-patient placed on IV Rocephin-cultures pending. Patient seen and examined in her room-sitter at bedside. Patient did open her eyes and attempt to speak-patient was able to shake her head yes and no-answers were not consistent. Patient unable to report any review of systems or communicate further. Patient dosed off quickly during visit. -Goals of care-patient is currently a DNR, this was determined at [facility] prior to admission. We have no advanced directives on file. We will continue to attempt to reach patient's sister regarding patient's wishes. If the sister would like the patient to return to [facility]-would consider referral for hospice care in addition to her care at [facility]. -Encephalopathy-multifactorial, positive UA, hyponatremia, hypokalemia -ALS-patient at end-stage of her disease, would recommend comfort care and hospice referral if okay with family -Hypernatremia/hypokalemia-correcting with IV fluids. Will continue to follow, will continue to try to contact patient's sister and POA and assist with medical decision making. (2) Encephalopathy: (3) ALS (amyotrophic lateral sclerosis): (4) Hypokalemia: History of Present Illness Reason for Consultation: Address goals of care Requesting Physician: Dr Beltrán Attending Physician: Ashanti Beltrán, DO History of Present Illness Patient is a 63-year-old female with a past medical history significant for ALS, hypertension, diastolic heart failure and osteoarthritis who was sent in from [facility] for racing suicidal ideation per staff at [facility]. Patient is minimally responsive, unable to answer simple questions, attempted to reach patient's sister, Nilda Don at [phone] separate occasions-left message for her to call and left my cell phone number. Sister had been at bedside earlier this morning-nursing reports that sister stated that patient has been nonverbal for quite some time-not sure how she could have voiced intentions to harm herself. Please refer to psychiatry evaluation-due to patient's ALS and increased weakness-it is very unlikely she would be able to harm herself. Patient's last hospitalization was 11 months ago for increased weakness due to her ALS and a fall. Unable to contact sister to determine rate of recent decline. Patient had been refusing meds at the [facility], she had decreased p.o. intake -it was reported that she did not care for pured diet which was recently changed due to increased dysphasia. On admission patient's sodium was 151, potassium 2.6, BUN 20 with a creatinine of 0.58. Patient's albumin was 2.8 and TSH was within normal limits. Patient's chest x-ray as well as head CT were negative. UA is positive-patient placed on IV Rocephin-cultures pending. Patient seen and examined in her room-sitter at bedside. Patient did open her eyes and attempt to speak-patient was able to shake her head yes and no but was not consistent with her answers. Patient unable to report any review of systems or communicate further. Patient dosed off quickly during visit. Allergies Allergy/AdvReac Type Severity Reaction Status Date / Time CARLOS Inhibitors Allergy Mild UNKNOWN Verified 03/29/19 02:33 fluconazole Allergy Unknown ON Verified 03/29/19 02:33 HEARTIDE LIST Home Medications Home Medications Medication Instructions Recorded Confirmed Type Barrier Cream 1 applic TOPICAL TID 03/29/19 03/29/19 History acetaminophen 650 mg PO Q6H PRN 03/29/19 03/29/19 History acetaminophen 650 mg PO Q8 PRN 03/29/19 03/29/19 History aspirin [Aspirin Childrens] 81 mg PO DAILY 03/29/19 03/29/19 History atorvastatin 40 mg PO DAILY 03/29/19 03/29/19 History bisacodyl [Dulcolax (bisacodyl)] 10 mg [place] DAILY PRN 03/29/19 03/29/19 History celecoxib [Celebrex] 200 mg PO DAILY 03/29/19 03/29/19 History ferrous sulfate 325 mg PO WK 03/29/19 03/29/19 History food supplemt, lactose-reduced 1 ea PO .DAILY AT 1500 03/29/19 03/29/19 History [Boost] furosemide [Lasix] 20 mg PO DAILY 03/29/19 03/29/19 History losartan [Cozaar] 50 mg PO DAILY 03/29/19 03/29/19 History magnesium hydroxide [Milk of 30 ml PO DAILY PRN 03/29/19 03/29/19 History Magnesia] magnesium oxide 400 mg PO DAILY 03/29/19 03/29/19 History meclizine 25 mg PO TID PRN 03/29/19 03/29/19 History multivit,stress formula-zinc 1 tab PO DAILY 03/29/19 03/29/19 History [Stress Formula with Zinc] multivitamin,tx-minerals 1 cap PO DAILY 03/29/19 03/29/19 History [Multi-Vitamin HP/Minerals] ostomy supplies [Skin Prep Wipes] 03/29/19 03/29/19 History phenol [Chloraseptic Throat [place]] 1 spray MUCOUS MEMBRANE Q8 PRN 03/29/19 03/29/19 History polyethylene glycol 3350 [Miralax] 17 g PO Q OTHER DAY 03/29/19 03/29/19 History ranitidine HCl 150 mg PO DAILY 03/29/19 03/29/19 History scopolamine base [Transderm-Scop] 1 patch TRANSDERMAL Q3D 03/29/19 03/29/19 History sennosides-docusate sodium 1 tab PO BID 03/29/19 03/29/19 History [Senna-S] sodium phosphates [Fleet Enema] 118 ml MN DAILY PRN 03/29/19 03/29/19 History Patient History Medical History Osteoarthritis (Chronic) Diastolic heart failure (Chronic) HTN (hypertension) (Chronic) ALS (amyotrophic lateral sclerosis) (Chronic) Surgical History History of bilateral breast reduction surgery (Resolved) History of right oophorectomy (Resolved) Hx laparoscopic cholecystectomy (Resolved) History of endometrial ablation (Resolved) Family History Other No significant family history Social History Preferred Language: Telugu Communication Ability: Unable Communication Ability Comment: mostly nonverbal. hx ALS Visual Impairment: No Limitations Windows Security Analyst Required: No Beliefs That Will Affect Care: None marital status: Single Current Living Situation: Assisted current occupational status: unemployed Feels Safe at Home: Yes Smoking Status: Unknown if ever smoked Hx Alcohol Use: No Hx Substance Use: No Review of Systems Review of Systems: Unobtainable due to cognitive status Physical Exam Physical Exam: PE: Patient appears comfortable HEENT: EOMI, hearing appears to be within normal limits Respirations: Unlabored CV: Regular rate Abdomen: Soft, nontender Extremities: Significant weakness Neuro: Patient minimally verbal-at most can speak 1 intelligible word, lethargic Results & Data Vital Signs (Past 12 Hours) Vital Signs Temp Pulse Pulse Resp BP BP Pulse Ox 03/29/19 07:57 97 H 03/29/19 07:56 99.3 F 88 18 106/73 94 03/29/19 07:22 98.1 F 104 H 20 91/56 L 95 03/29/19 05:35 98.2 F 75 18 116/80 94 03/29/19 05:05 80 20 166/82 H 96 03/29/19 04:13 101 H 20 155/98 H 94 PG Care Time/CCT Total # of Minutes Spent Total Time Spent with Patient: Total time spent is greater than 50% in coordination of care (as documented) at patient's floor/unit and/or counseling patient: Time Spent Attending Time spent 55 minutes with greater than 50% of time spent at bedside assessing patient's current status
[2019-03-29] MEDS ORDERED: SCOPOLAMINE 1.5 MG TDSY TD SCH (15:00)
[2019-03-29] MEDS ORDERED: POTASSIUM CHLORIDE 20 MEQ/15 ML UDC PO SCH (15:00)
[2019-03-29] MEDS: D5W AND NSS 1,000 ML IV SCH (15:18)
[2019-03-29] MEDS: CHECK SCOPOLAMINE PATCH PLACEMENT SCH ×2 (16:09→23:54)
[2019-03-29] MEDS ORDERED: ACETAMINOPHEN 65 ML IV PRN (17:30)
[2019-03-30] MEDS: D5W AND NSS 1,000 ML IV SCH (00:32)
[2019-03-30 05:59] LABS: Basophils # (auto) 0.03 K/uL (0-0.2); Basophils % (auto) 0.6 %; Eosinophils # (auto) 0.03 K/uL (0-0.5); Eosinophils % (auto) 0.6 %; Hematocrit (blood only) 41.5 % (37-47); Hemoglobin 14.5 g/dL (12.0-16.0); Immature Granulocytes # (auto) 0.12 K/uL (0.00-0.02); Immature Granulocytes % (auto) 2.3 %; Lymphocytes # (auto) 0.67 K/uL (1.2-3.4); Lymphocytes % (auto) 12.8 %; Mean Corpuscular Hemoglobin 32.3 pg (25-34); Mean Corpuscular Hgb Conc 34.9 g/dL (32-36); Mean Corpuscular Volume 92.4 fL (80-100); Mean Platelet Volume 9.7 fL (7.4-10.4); Monocytes # (auto) 0.54 K/uL (0.11-0.59); Monocytes % (auto) 10.3 %; Neutrophils # (auto) 3.85 K/uL (1.4-6.5); Neutrophils % (auto) 73.4 %; Platelet Count 217 K/uL (130-400); RDW Coefficient of Variation 14.7 % (11.5-14.5); RDW Standard Deviation 50.4 fL (36.4-46.3); Red Blood Count 4.49 M/uL (4.2-5.4); White Blood Count 5.24 K/uL (4.8-10.8)
[2019-03-30] MEDS: cefTRIAXone SODIUM 2,000 MG in DEXTROSE 5% 50 ML IV SCH (06:25)
[2019-03-30 06:32] LABS: BUN Creatinine Ratio 38.3 (10-20); Calcium 8.4 mg/dl (8.5-10.1); Creatinine Clr Calc Pharmacy 158.6 ml/min; Est GFR (African American) 125.5; Est GFR (Non-African American) 108.3; Magnesium 1.8 mg/dl (1.8-2.4); Potassium 2.9 mmol/L (3.5-5.1)
[2019-03-30] MEDS ORDERED: DEXTROSE 5% 1,000 ML IV SCH (07:45)
[2019-03-30] MEDS: CHECK SCOPOLAMINE PATCH PLACEMENT SCH (07:57)
[2019-03-30] MEDS: MoRPHine SULFATE 2 MG/ML CARP IV PRN ×2 (08:00→11:37)
[2019-03-30] MEDS ORDERED: HYDROmorphone INJ 0.5 MG/0.5 ML SYR IV STA (08:56)
[2019-03-30] MEDS: ENOXAPARIN INJ 30 MG/0.3 ML SYR SQ SCH (09:17)
[2019-03-30] MEDS: POTASSIUM CHLORIDE / WTR 10 MEQ/100 ML PLCT IV SCH ×3 (09:18→10:45)
--- NOTE | 2019-03-30 09:44 | Hospitalist Progress Note ---
Date of Service March 30, 2019 Assessment & Plan (1) UTI (urinary tract infection): Rocephin started empirically. Will continue for the next couple of days while she is in house. Cont IV as patient has difficulty swallowing. (2) Elevated troponin: Elevated troponin without accelerated rise, no evidence of ACS. Echocardiogram reveals no segmental left ventricular wall motion abnormalities. There is also no significant valvular pathology and moderate concentric LVH is present. Ejection fraction is 66 5%. ACS is considered less likely. (3) Hypokalemia: IV replacement started, which appeared to cause her distress, and was stopped after my conversation with her sister about transitioning to comfort measures. Will order some PO potassium replacement as she will try and eat today. (4) ALS (amyotrophic lateral sclerosis): Progressed, transition to comfort care measures moving forward, and Case Management will be discussing options with sister about adding Hospice to current [facility] residency vs other. (5) DVT prophylaxis: None given to maximize comfort DNR/DNI-comfort measures status Disposition-plan to keep her as inpatient through the weekend to maximize comfort and re-engage with Palliative Care/set up Hospice support. Plan for now to transition back to [facility] with Hospice on comfort care measures including allowing her to eat and drink for comfort. Ashanti Beltrán DO [facility]ist Subjective Conversation with patient's sister, who is her triplet. Wants patient comfort to be paramount. We had a very clear conversation that the patient would not want a PEG tube or other form of artificial feeding and would not want a t racheostomy. Understands risks of aspiration including potentially fatal pneumonia, critically low potassium, hypernatremia, etc. Weakness is very progressed and patient is bedbound, ?difficulty taking deep breaths. Sister is fine with Hospice care at this point. She is fine with morphine and Ativan as needed. Requests that scopolamine patch be removed as it dries out the patient's mouth. Understands that patient may not be able to handle her secretions, and choke even without food. Discussed the case with floor nurse, adult protective caseworker and speech path. All are speaking with patient' sister this morning to give her options. Speech path will order a diet and make recommendations. Review of Systems Review of Systems: Unobtainable due to mental health condition (cannot communicate 2/2 ALS complications) Physical Exam Physical Exam: CONSTITUTIONAL: obese, vitals as above, generally deconditioned EYES: normal conjunctivae, no scleral icterus ENT: MMM Neck: circular erythema related to scopolamine patch in place, prior areas of erythema where prior patches have been placed. RESPIRATORY: very limited exam as she is bedbound and very weak, unable to perform tasks requested including. clear to auscultation bilaterally, no crackles, rales or wheezes, normal to weak respiratory effort, no overt distress and maintaining normal oxygen saturation. CARDIOVASCULAR: regular rate and rhythm, S1 and 2 heard without murmurs, gallops or rubs, no JVD, no peripheral edema GASTROINTESTINAL: normal bowel sounds, soft, nontender, nondistended MUSCULOSKELETAL: generalized weakness and deconditioning SKIN: warm and dry NEUROLOGIC: falls asleep easily (just had morphine 2mg IV) but will easily awaken, cannot assess orientation as she is unable to follow instructions. Results & Data Vital Signs (Past 12 Hours) Vital Signs Temp Pulse Pulse Resp BP Pulse Ox 03/30/19 07:00 88 03/30/19 03:54 37 C 86 18 129/84 94 03/30/19 01:06 100 H 03/29/19 23:08 36.8 C 84 18 114/79 94 Laboratory Results Short CBC 03/30/19 Range/Units 05:38 WBC 5.24 (4.8-10.8) K/uL Hgb 14.5 (12.0-16.0) g/dL Hct 41.5 (37-47) % Plt Count 217 (130-400) K/uL BMP 03/29/19 03/30/19 12:11 05:38 Sodium 148 H 150 H Potassium 3.1 L D 2.9 L Chloride 112 H 116 H Carbon Dioxide 26 27 BUN 19 H 16 Creatinine 0.44 L 0.42 L Glucose 115 H 154 H Calcium 8.4 L 8.4 L Medications Administered Current Inpatient Medications Bisacodyl (Dulcolax) 10 mg [place] DAILY PRN PRN Reason: Constipation Stop: 04/28/19 14:15 Enoxaparin Sodium (Lovenox) 30 mg SQ QAM ALINE Stop: 04/28/19 08:59 Last Admin: 03/29/19 07:47 Dose: 30 mg Documented by: Promethazine HCl 12.5 mg/ (Sodium Chloride) 50.5 mls @ 202 mls/hr IV Q6H PRN PRN Reason: Nausea And Vomiting Stop: 04/28/19 05:59 Ceftriaxone Sodium 2,000 mg/ (Dextrose) 70 mls @ 100 mls/hr IV Q24H [facility]; Protocol Stop: 04/08/19 05:59 Last Infusion: 03/30/19 07:07 Dose: Infused Documented by: Acetaminophen (Ofirmev) 65 mls @ 200 mls/hr IV Q8H PRN PRN Reason: pain/fever Stop: 04/28/19 17:29 Potassium Chloride (K Milind / Wtr) 10 meq in 100 mls @ 100 mls/hr IV Q1H ALINE Stop: 03/30/19 11:59 Dextrose (D5w) 1,000 mls @ 125 mls/hr IV .Q8H [facility] Stop: 04/29/19 07:44 Last Admin: 03/30/19 07:56 Dose: 125 mls/hr Documented by: Miconazole Nitrate (Desenex) 1 appln EXT PRN PRN PRN Reason: Affected Skin Folds Stop: 04/28/19 07:58 Miscellaneous (Check Scopolamine Patch Placement) 1 ea N/A QS [facility] Stop: 04/28/19 15:59 Last Admin: 03/30/19 07:57 Dose: 1 ea Documented by: Miscellaneous (Remove Transderm-Scop Patch) 1 ea N/A Q72H [facility] Stop: 04/30/19 08:58 Morphine Sulfate (Morphine Sulfate) 2 mg IV Q4H PRN PRN Reason: Pain Stop: 04/12/19 05:59 Last Admin: 03/30/19 08:00 Dose: 2 mg Documented by: Nitroglycerin (Nitrostat) 0.4 mg SL UD PRN PRN Reason: Chest Pain Stop: 04/28/19 05:59 Scopolamine (Transderm-Scop) 1.5 mg TD Q3D [facility] Stop: 04/30/19 08:59 (1) UTI (urinary tract infection) Hematuria presence: with hematuria Urinary tract infection type: acute cystitis Qualified Code(s): N30.01 - Acute cystitis with hematuria
[2019-03-30] MEDS ORDERED: LORazepam 0.5 MG/1 ML VIAL IV PRN (10:11)
[2019-03-30] MEDS: MoRPHine SULFATE 5 MG/0.25 ML UDP PO PRN ×3 (10:32→20:20)
--- NOTE | 2019-03-30 14:34 | Hospitalist Progress Note ---
Date of Service March 30, 2019 Assessment & Plan (1) UTI (urinary tract infection): Rocephin started empirically. Will continue for the next couple of days while she is in house. Cont IV as patient has difficulty swallowing. (2) Elevated troponin: Elevated troponin without accelerated rise, no evidence of ACS. Echocardiogram reveals no segmental left ventricular wall motion abnormalities. There is also no significant valvular pathology and moderate concentric LVH is present. Ejection fraction is 66 5%. ACS is considered less likely. (3) Hypokalemia: IV replacement started, which appeared to cause her distress, and was stopped after my conversation with her sister about transitioning to comfort measures. Will order some PO potassium replacement as she will try and eat today. (4) ALS (amyotrophic lateral sclerosis): Progressed, transition to comfort care measures moving forward, and Case Management will be discussing options with sister about adding Hospice to current [facility] residency vs other. (5) DVT prophylaxis: None given to maximize comfort DNR/DNI-comfort measures status Disposition-plan to keep her as inpatient through the weekend to maximize comfort and re-engage with Palliative Care/set up Hospice support. Plan for now to transition back to [facility] with Hospice on comfort care measures including allowing her to eat and drink for comfort. Ashanti Beltrán DO [facility] Hospitalist Results & Data Vital Signs (Past 12 Hours) Vital Signs Temp Pulse Pulse Resp BP Pulse Ox 03/30/19 07:00 88 03/30/19 03:54 37 C 86 18 129/84 94 (1) UTI (urinary tract infection) Hematuria presence: with hematuria Urinary tract infection type: acute c ystitis Qualified Code(s): N30.01 - Acute cystitis with hematuria
[2019-03-30] MEDS: DEXTROSE 5% 1,000 ML IV SCH (18:49)
--- NOTE | 2019-03-30 22:28 | Emergency Department Note ---
Entered by Daja Rai acting as a scribe for Cassy Sweeney DO History of Present Illness General Chief complaint: Mental Health Evaluation Stated complaint: MENTAL HEALTH Time Seen by Provider: 03/28/19 23:45 Source: patient and old records reviewed History of Present Illness Provider complaint: mental health evaluation Onset (ago): minute(s) (prior to arrival ) Location: left and right Quality: + other (mental health evaluation ) Associated symptoms: + other (Negative suicidal ideation due to illness;) The patient, who is a 63 year old female with a medical history of ALS, hypertension and elevated troponin , presents to the Emergency Room with concern from her caretakers at a [place] facility of suicidal ideation that should be evaluated. The patient's record states that the patient has expressed that she is suicidal. [place] staff stated to [facility] staff that the patient has been trying to throw herself of her bed and that she is declining treatment. [place] [facility] contacted [facility] who performed an evaluation. The patient's records states that she is not on anticoagulation and only takes a baby aspirin. [place] records due not indicate any recent change in meds. Pt with hx of dysphagia. HPI is limited secondary to nonverbal status. Home Medications Home Medications Medication Instructions Recorded Confirmed Type Barrier Cream 1 applic TOPICAL TID 03/29/19 03/29/19 History acetaminophen 650 mg PO Q6H PRN 03/29/19 03/29/19 History acetaminophen 650 mg PO Q8 PRN 03/29/19 03/29/19 History aspirin [Aspirin Childrens] 81 mg PO DAILY 03/29/19 03/29/19 History atorvastatin 40 mg PO DAILY 03/29/19 03/29/19 History bisacodyl [Dulcolax (bisacodyl)] 10 mg MA DAILY PRN 03/29/19 03/29/19 History celecoxib [Celebrex] 200 mg PO DAILY 03/29/19 03/29/19 History ferrous sulfate 325 mg PO WK 03/29/19 03/29/19 History food supplemt, lactose-reduced 1 ea PO .DAILY AT 1500 03/29/19 03/29/19 History [Boost] furosemide [Lasix] 20 mg PO DAILY 03/29/19 03/29/19 History losartan [Cozaar] 50 mg PO DAILY 03/29/19 03/29/19 History magnesium hydroxide [Milk of 30 ml PO DAILY PRN 03/29/19 03/29/19 History Magnesia] magnesium oxide 400 mg PO DAILY 03/29/19 03/29/19 History meclizine 25 mg PO TID PRN 03/29/19 03/29/19 History multivit,stress formula-zinc 1 tab PO DAILY 03/29/19 03/29/19 History [Stress Formula with Zinc] multivitamin,tx-minerals 1 cap PO DAILY 03/29/19 03/29/19 History [Multi-Vitamin HP/Minerals] ostomy supplies [Skin Prep Wipes] 03/29/19 03/29/19 History phenol [Chloraseptic Throat [place]] 1 spray MUCOUS MEMBRANE Q8 PRN 03/29/19 03/29/19 History polyethylene glycol 3350 [Miralax] 17 g PO Q OTHER DAY 03/29/19 03/29/19 History ranitidine HCl 150 mg PO DAILY 03/29/19 03/29/19 History scopolamine base [Transderm-Scop] 1 patch TRANSDERMAL Q3D 03/29/19 03/29/19 History sennosides-docusate sodium 1 tab PO BID 03/29/19 03/29/19 History [Senna-S] sodium phosphates [Fleet Enema] 118 ml MA DAILY PRN 03/29/19 03/29/19 History Allergies Allergy/AdvReac Type Severity Reaction Status Date / Time CARLOS Inhibitors Allergy Mild UNKNOWN Verified 03/29/19 02:33 fluconazole Allergy Unknown ON Verified 03/29/19 02:33 HEARTHSIDE LIST Past Med/Surg History Medical History Osteoarthritis (Chronic) Diastolic heart failure (Chronic) HTN (hypertension) (Chronic) ALS (amyotrophic lateral sclerosis) (Chronic) Surgical History History of bilateral breast reduction surgery (Resolved) History of right oophorectomy (Resolved) Hx laparoscopic cholecystectomy (Resolved) History of endometrial ablation (Resolved) Family History Other No significant family history Social History Preferred Language: Uzbek Communication Ability: Effective Communication Ability Comment: mostly nonverbal. 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 Physical Exam Vital Signs Vital Signs - 24 hr 03/28/19 23:53 03/29/19 02:07 03/29/19 04:13 Temperature 36.8 C Temperature Source Oral Sepsis Recent Fever Within 48 Hours No Sepsis Action Taken by Nursing No Action Required Pulse Rate 89 Pulse Rate [Right Finger] 89 93 H 101 H Pulse Rhythm [Right Finger] Regular Respiratory Rate 16 20 20 Respiratory Effort / Characteristics Non-Labored Respiratory Depth Normal Blood Pressure 128/73 Blood Pressure [Right Arm] 128/73 128/81 155/98 H Blood Pressure Mean 91 Blood Pressure Mean [Right Arm] 91 96 117 Pulse Oximetry 94 98 94 Oxygen Delivery Method Room Air Room Air Room Air GENERAL: alert, ill appearing, no distress, non-toxic HEAD: Area of ecchymosis noted to right superior forehead EYE EXAM: normal conjunctiva, PERRL and EOM's grossly intact OROPHARYNX: no exudate, no erythema, lips, buccal mucosa, and tongue normal and mucous membranes are dry NECK: supple, no nuchal rigidity, no adenopathy, non-tender LUNGS: Clear to auscultation. Normal chest wall mechanics HEART: no murmurs, S1 normal and S2 normal ABDOMEN: abdomen soft, non-tender, normo-active bowel sounds, no masses, no rebound or guarding. BACK: Back is symmetrical on inspection and there is no deformity, no midline tenderness, no CVA tenderness. SKIN: no rashes and no bruising UPPER EXTREMITIES: upper extremities are grossly normal. Normal pulses bilaterally, muscular atrophy, no evidence of trauma. LOWER EXTREMITIES: No pitting edema. Normal pulses bilaterally, muscular atrophy, no evidence of trauma. NEURO EXAM: Patient moans, alert, can track, generalized weakness with minimal ability to move extremities. Course 2352: Past medical records reviewed. The patient was evaluated in room A6. A complete history and physical exam was performed. 0330: I reviewed the patient's case with Suzanne James. He will evaluate the patient for further management. Consultations Consultation #1: I reviewed the patient's case with Suzanne Jamse. He will evaluate the patient for further management. Time: 03:30 Administered Medications Ceftriaxone Sodium 2,000 mg/ (Dextrose) 70 mls @ 100 mls/hr IV Q24H ALINE; Protocol Stop: 04/08/19 05:59 Last Infusion: 03/30/19 07:07 Dose: 0 mls/hr Documented by: [id number] Admin: 03/30/19 06:25 Dose: 100 mls/hr Documented by: [id number] Acetaminophen ([facility]) 65 mls @ 200 mls/hr IV Q8H PRN PRN Reason: pain/fever Stop: 04/28/19 17:29 Last Infusion: 03/30/19 10:34 Dose: 0 mls/hr Documented by: [id number] Admin: 03/30/19 10:13 Dose: 200 mls/hr Documented by: [id number] Lorazepam (Ativan) 0.5 mg in 1 mls @ 1 mls/min IV Q6H PRN PRN Reason: agitation/anxiety Stop: 04/29/19 10:10 Last Admin: 03/30/19 10:55 Dose: 1 mls/min Documented by: [id number] Dextrose (D5w) 1,000 mls @ 150 mls/hr IV .Q6H40M ALINE Stop: 03/31/19 07:34 Last Admin: 03/30/19 18:49 Dose: 150 mls/hr Documented by: [id number] Miconazole Nitrate (Desenex) 1 appln EXT PRN PRN PRN Reason: Affected Skin Folds Stop: 04/28/19 07:58 Last Admin: 03/30/19 20:31 Dose: 1 appln Documented by: [id number] Morphine Sulfate (Morphine Sulfate) 2 mg IV Q4H PRN PRN Reason: Pain Stop: 04/12/19 05:59 Last Admin: 03/30/19 11:37 Dose: 2 mg Documented by: [id number] Admin: 03/30/19 08:00 Dose: 2 mg Documented by: [id number] Morphine Sulfate (Roxanol) 5 mg PO Q1H PRN PRN Reason: pain or agitation Stop: 04/13/19 10:10 Last Admin: 03/30/19 20:20 Dose: 5 mg Documented by: [id number] Admin: 03/30/19 11:50 Dose: 5 mg Documented by: [id number] Admin: 03/30/19 10:32 Dose: 5 mg Documented by: [id number] Discontinued Medications Enoxaparin Sodium (Lovenox) 30 mg SQ QAM ALINE Stop: 04/28/19 08:59 Last Admin: 03/30/19 09:17 Dose: Not Given Documented by: [id number] Admin: 03/29/19 07:47 Dose: 30 mg Documented by: [id number] Hydromorphone HCl (Dilaudid) 0.5 mg IV NOW STA Stop: 03/30/19 08:57 Last Admin: 03/30/19 09:53 Dose: Not Given Documented by: [id number] Sodium Chloride (Nss 1000ml) 1,000 mls @ 250 mls/hr IV .Q4H ALINE Stop: 04/27/19 23:44 Last Infusion: 03/29/19 06:03 Dose: 0 mls/hr Documented by: [id number] Admin: 03/29/19 01:40 Dose: 250 mls/hr Documented by: [id number] Ceftriaxone Sodium (Rocephin) 2,000 mg in 70 mls @ 140 mls/hr IV NOW STA Stop: 03/29/19 03:10 Last Infusion: 03/29/19 06:03 Dose: 0 mls/hr Documented by: [id number] Admin: 03/29/19 03:05 Dose: 140 mls/hr Documented by: [id number] Potassium Chloride (K Milind / Wtr) 10 meq in 100 mls @ 100 mls/hr IV Q1H ALINE Stop: 03/29/19 05:40 Last Infusion: 03/29/19 09:59 Dose: 0 mls/hr Documented by: [id number] Admin: 03/29/19 06:31 Dose: 50 mls/hr Documented by: [id number] Infusion: 03/29/19 05:23 Dose: 100 mls/hr Documented by: [id number] Admin: 03/29/19 04:23 Dose: 100 mls/hr Documented by: [id number] Potassium Chloride (K Milind / Wtr) 10 meq in 100 mls @ 100 mls/hr IV Q1H ALINE Stop: 03/29/19 12:59 Last Admin: 03/29/19 10:00 Dose: Not Given Documented by: [id number] Admin: 03/29/19 09:58 Dose: Not Given Documented by: [id number] Infusion: 03/29/19 09:58 Dose: 0 mls/hr Documented by: [id number] Admin: 03/29/19 09:54 Dose: 50 mls/hr Documented by: [id number] Infusion: 03/29/19 09:46 Dose: 50 mls/hr Documented by: [id number] Admin: 03/29/19 07:46 Dose: 50 mls/hr Documented by: [id number] Potassium Chloride 40 meq/ (Dextrose) 1,020 mls @ 50 mls/hr IV .[id number] ALINE Stop: 04/28/19 05:59 Last Infusion: 03/29/19 09:59 Dose: 0 mls/hr Documented by: [id number] Infusion: 03/29/19 09:56 Dose: 0 mls/hr Documented by: [id number] Admin: 03/29/19 06:31 Dose: 50 mls/hr Documented by: [id number] Potassium Chloride (K Milind / Wtr) 10 meq in 100 mls @ 100 mls/hr IV Q1H ALINE Stop: 03/29/19 16:44 Last Infusion: 03/29/19 17:10 Dose: 0 mls/hr Documented by: [id number] Admin: 03/29/19 16:08 Dose: 100 mls/hr Documented by: [id number] Infusion: 03/29/19 16:08 Dose: 100 mls/hr Documented by: [id number] Admin: 03/29/19 15:18 Dose: 100 mls/hr Documented by: [id number] Dextrose/Sodium Chloride (D5w And Nss) 1,000 mls @ 100 mls/hr IV .Q10H ALINE Stop: 04/28/19 14:29 Last Infusion: 03/30/19 10:32 Dose: 0 mls/hr Documented by: [id number] Admin: 03/30/19 00:32 Dose: 100 mls/hr Documented by: [id number] Infusion: 03/30/19 00:32 Dose: 100 mls/hr Documented by: [id number] Admin: 03/29/19 15:18 Dose: 100 mls/hr Documented by: [id number] Potassium Chloride (K Milind / Wtr) 10 meq in 100 mls @ 100 mls/hr IV Q1H ALINE Stop: 03/30/19 11:59 Last Admin: 03/30/19 10:45 Dose: Not Given Documented by: [id number] Admin: 03/30/19 10:35 Dose: Not Given Documented by: [id number] Admin: 03/30/19 09:18 Dose: Not Given Documented by: [id number] Dextrose (D5w) 1,000 mls @ 125 mls/hr IV .Q8H ALINE Stop: 04/29/19 07:44 Last Admin: 03/30/19 07:56 Dose: 125 mls/hr Documented by: [id number] Influenza Virus Vaccine Quadrival (Flucelvax Quad Vaccine) 0.5 ml IM .ONCE ONE Stop: 03/29/19 08:01 Last Admin: 03/29/19 08:25 Dose: Not Given Documented by: [id number] Metoprolol Tartrate (Lopressor) 2.5 mg IV NOW STA Stop: 03/29/19 04:41 Last Admin: 03/29/19 04:45 Dose: 2.5 mg Documented by: [id number] Miscellaneous (Check Scopolamine Patch Placement) 1 ea N/A QS [facility] Stop: 04/28/19 15:59 Last Admin: 03/30/19 07:57 Dose: 1 ea Documented by: [id number] Admin: 03/29/19 23:54 Dose: 1 ea Documented by: [id number] Admin: 03/29/19 16:09 Dose: 1 ea Documented by: [id number] Potassium Chloride (Klor-Con M20) 40 meq PO NOW STA Stop: 03/29/19 03:36 Last Admin: 03/29/19 04:18 Dose: Not Given Documented by: [id number] Medical Decision Making Differential Diagnosis Differential Diagnosis includes but is not limited to dehydration, stroke, anemia, hypoglycemia, hyponatremia, hypernatremia, urinary tract infection, pneumonia, bronchitis, sepsis, gastroenteritis, additional abdominal pathology, metabolic abnormalities and infections. Medical Records Attestation: I reviewed the patient's medical records. Home Medications Current Medication List: was personally reviewed by me Laboratory Data Attestation: I reviewed the patient's lab results. Result diagrams: 03/30/19 05:38 03/30/19 05:38 Lab Results 03/29/19 03/29/19 03/29/19 Range/Units 00:38 00:38 00:38 WBC 6.61 (4.8-10.8) K/uL RBC 4.91 (4.2-5.4) M/uL Hgb 15.7 (12.0-16.0) g/dL Hct 45.9 (37-47) % MCV 93.5 (80-100) fL MCH 32.0 (25-34) pg MCHC 34.2 (32-36) g/dL RDW Std Deviation 50.8 H (36.4-46.3) fL RDW Coeff of Noris 14.8 H (11.5-14.5) % Plt Count 248 (130-400) K/uL MPV 10.0 (7.4-10.4) fL Immature Gran % (Auto) 1.7 % Neut % (Auto) 80.3 % Lymph % (Auto) 10.1 % [place] % (Auto) 7.4 % Eos % (Auto) 0.2 % Baso % (Auto) 0.3 % Immature Gran # (Auto) 0.11 H (0.00-0.02) K/uL Neut # (Auto) 5.31 (1.4-6.5) K/uL Lymph # (Auto) 0.67 L (1.2-3.4) K/uL [place] # (Auto) 0.49 (0.11-0.59) K/uL Eos # (Auto) 0.01 (0-0.5) K/uL Baso # (Auto) 0.02 (0-0.2) K/uL APTT 28.2 (21.0-31.0) Seconds PTT Ratio 1.0 Sodium 151 H (136-145) mmol/L Potassium 2.6 L (3.5-5.1) mmol/L Chloride 110 H (98-107) mmol/L Carbon Dioxide 32 (21-32) mmol/L Anion Gap 9.0 (3-11) BUN 20 H (7-18) mg/dl Creatinine 0.58 L (0.6-1.2) mg/dl Est Cr Clr Drug Dosing 115.4 ml/min Est GFR ( Amer) 112.9 Est GFR (Non-Af Amer) 97.4 BUN/Creatinine Ratio 33.7 H (10-20) Glucose 98 (70-99) mg/dl Calcium 8.8 (8.5-10.1) mg/dl Magnesium 2.2 (1.8-2.4) mg/dl Total Bilirubin 2.0 H (0.2-1) mg/dl AST 20 (15-37) U/L ALT 13 (12-78) U/L Alkaline Phosphatase 128 H (45-117) U/L Troponin I 0.078 H* (0-0.045) ng/ml Total Protein 6.3 L (6.4-8.2) gm/dl Albumin 2.8 L (3.4-5.0) gm/dl Globulin 3.5 (2.5-4.0) gm/dl Albumin/Globulin Ratio 0.8 L (0.9-2) Lipase 44 L (73-393) U/L TSH 1.120 (0.300-4.500) uIu/ml Urine Color Urine Appearance (Clear) Urine pH (4.5-7.5) Ur Specific [place] (1.000-1.030) Urine Protein (Negative) Urine Glucose (UA) (Negative) Urine Ketones (Negative) Urine Blood (Negative) Urine Nitrite (Negative) Urine Bilirubin (Negative) Urine Urobilinogen (Negative) Ur Leukocyte Esterase (Negative) Urine RBC (0-4) /hpf Urine WBC (0-5) /hpf Ur Epithelial Cells (0-5) /lpf Urine Bacteria (Negative) Hyaline Casts (0-5) /lpf 03/29/19 03/29/19 Range/Units 02:00 04:23 WBC (4.8-10.8) K/uL RBC (4.2-5.4) M/uL Hgb (12.0-16.0) g/dL Hct (37-47) % MCV (80-100) fL MCH (25-34) pg MCHC (32-36) g/dL RDW Std Deviation (36.4-46.3) fL RDW Coeff of Noris (11.5-14.5) % Plt Count (130-400) K/uL MPV (7.4-10.4) fL Immature Gran % (Auto) % Neut % (Auto) % Lymph % (Auto) % [place] % (Auto) % Eos % (Auto) % Baso % (Auto) % Immature Gran # (Auto) (0.00-0.02) K/uL Neut # (Auto) (1.4-6.5) K/uL Lymph # (Auto) (1.2-3.4) K/uL [place] # (Auto) (0.11-0.59) K/uL Eos # (Auto) (0-0.5) K/uL Baso # (Auto) (0-0.2) K/uL APTT (21.0-31.0) Seconds PTT Ratio Sodium 151 H (136-145) mmol/L Potassium (3.5-5.1) mmol/L Chloride (98-107) mmol/L Carbon Dioxide (21-32) mmol/L Anion Gap (3-11) BUN (7-18) mg/dl Creatinine (0.6-1.2) mg/dl Est Cr Clr Drug Dosing ml/min Est GFR ( Amer) Est GFR (Non-Af Amer) BUN/Creatinine Ratio (10-20) Glucose (70-99) mg/dl Calcium (8.5-10.1) mg/dl Magnesium (1.8-2.4) mg/dl Total Bilirubin (0.2-1) mg/dl AST (15-37) U/L ALT (12-78) U/L Alkaline Phosphatase (45-117) U/L Troponin I 0.071 H* (0-0.045) ng/ml Total Protein (6.4-8.2) gm/dl Albumin (3.4-5.0) gm/dl Globulin (2.5-4.0) gm/dl Albumin/Globulin Ratio (0.9-2) Lipase (73-393) U/L TSH (0.300-4.500) uIu/ml Urine Color Antonia Urine Appearance Clear (Clear) Urine pH 6.5 (4.5-7.5) Ur Specific [place] 1.020 (1.000-1.030) Urine Protein 2+ H (Negative) Urine Glucose (UA) Trace H (Negative) Urine Ketones 3+ H (Negative) Urine Blood Trace H (Negative) Urine Nitrite Positive A (Negative) Urine Bilirubin 3+ H (Negative) Urine Urobilinogen Positive H (Negative) Ur Leukocyte Esterase Trace H (Negative) Urine RBC 0-4 (0-4) /hpf Urine WBC 5-10 H (0-5) /hpf Ur Epithelial Cells 20-30 H (0-5) /lpf Urine Bacteria 2+ H (Negative) Hyaline Casts 0-5 (0-5) /lpf Imaging Data Radiologist's Impression: Radiology results as stated below per my review and the radiologist's interpretation: CT HEAD: Compared to 04/25/18 No intracranial hemorrhage or skull fracture. Radiologist: May Hubbard MD Study ready at 01:37 and initial results transmitted at 01:44 ECG Data Attestation: I personally reviewed and interpreted this ECG as follows: Indication: other (electrolyte abnormality) Rate (beats per minute): 91 Rhythm: sinus rhythm Findings: + other (Normal axis; Normal intervals; AVF in V2 and V3), + PVC, + Q waves (L3) and + ST depression; no ST elevation Comparison ECG Date: from (04/28/18) Change: the following changes noted (Different from current readings) Blood Pressure Blood Pressure Findings: Normal blood pressure MDM Narrative Pt here with advanced ALS, unable to move and nonverbal except for moaning. NH requested pt be transported due suicidality. It is unclear if this does exist given pt's severe limitations. It is unclear if hospice has been discussed at all with pt or her POA. Pt found to have dehydration, UTI, hypokalemia, elevated troponin, and slightly abnormal EKG compared to prior. NO evidence of bacteremia/sepsis. VS stable throughout. Pt was started on IVF initially and po potassium given. Pt started on IV antibiotics for UTI. No evidence of renal d ysfunction. Pt was alert throughout. Case discussed with hospitalist for additional evaluation and treatment and possible additional psychiatric evaluation if deemed necessary. EKG change and elevated troponin possible from infection and dehydration. Unclear if patient symptomatic. Pt does have a hx of elevated troponins previously. Impression & Plan Dehydration, UTI (urinary tract infection), ALS (amyotrophic lateral sclerosis ), Elevated troponin, Abnormal EKG, Hypokalemia Discharge Plan Visit Data *Final* Discharge Date/Time: 03/29/19 05:05 Chief Complaint: Mental Health Evaluation Stated Complaint: MENTAL HEALTH ED Provider: Cassy Sweeney Discharge Problem: Dehydration, UTI (urinary tract infection), ALS (amyotrophic lateral sclerosis) , Elevated troponin, Abnormal EKG, Hypokalemia Patient Disposition: Admitted As Inpatient Discharge Instructions Interventions: ED Discharge Assessment Last Done: 03/29/19 05:05 Discharge Problem: UTI (urinary tract infection) Qualifiers: Urinary tract infection type: acute cystitis Hematuria presence: with hematuria Qualified Code(s): N30.01 - Acute cystitis with hematuria The scribe's documentation has been prepared under my direction and personally reviewed by me in its entirety. I confirm that the note above accurately re flects all work, treatment, procedures, and medical decision making performed by me.
[2019-03-31] MEDS: DEXTROSE 5% 1,000 ML IV SCH (02:38)
[2019-03-31] MEDS: cefTRIAXone SODIUM 2,000 MG in DEXTROSE 5% 50 ML IV SCH (05:24)
[2019-03-31] MEDS ORDERED: SCOPOLAMINE 1.5 MG TDSY TD SCH (09:00)
[2019-03-31] MEDS: MoRPHine SULFATE 5 MG/0.25 ML UDP PO PRN ×2 (10:34→21:57)
[2019-03-31] MEDS: MoRPHine SULFATE 2 MG/ML CARP IV PRN (12:11)
--- NOTE | 2019-03-31 17:34 | Hospitalist Progress Note ---
Date of Service March 31, 2019 Assessment & Plan (1) ALS (amyotrophic lateral sclerosis): Progressed, transitioned to comfort care measures moving forward. Goal include allowing her to stay alert as long as she is not expressing distress or discomfort. Try feedings for comfort with full liquids in small amounts with aspiration precautions. Palliative to assist in care again after the weekend. (2) Comfort measures only status: (3) UTI (urinary tract infection): Cont IV Rocephin to clear infection as decreased PO abilities-cannot swallow pills. (4) Elevated troponin: Elevated troponin without accelerated rise, no evidence of ACS. Echocardiogram reveals no segmental left ventricular wall motion abnormalities. There is also no significant valvular pathology and moderate concentric LVH is p resent. Ejection fraction is 66 5%. ACS is considered less likely. (5) Hypokalemia: IV replacement causing distress and was stopped yesterday when she was transitioned to comfort care measures. We are not checking labwork. Sister verbalized understanding that this may cause a fatal arrhythmia as she will most likely not be able to sustain her caloric needs with PO foods alone at this point. (6) Hypernatremia: more awake today. Not checking labs to maximize comfort. Two units of dextrose given overnight. (7) DVT prophylaxis: None given to maximize comfort DNR/DNI-comfort measures status Disposition-plan to keep her as inpatient through the weekend to maximize comfort and re-engage with Palliative Care/set up Hospice support. Plan for now to transition back to [facility] with Hospice on comfort care measures including allowing her to eat and drink for comfort. Ashanti Beltrán, [facility] Hospitalist Subjective At bedside patient is awake and crying. She denies any pain by shaking her head, but is unable to communicate much beyond that. She can squeeze my fingers on command. She appears to be in emotional distress. Speech path was on the floor and attempted pudding which she really had a tough time with, but she seemed to do well with liquid in small amounts. Therefore, her diet was changed to full liquids. She was given some morphine for distress eventually. Later in the afternoon she was more awake and was bathed by nursing, appearing more comfortable per primary nurses report. She was about to try dinner. Review of Systems 2 Review of Systems: Unobtainable due to mental health condition (cannot articulate words and in emotional distress) Physical Exam 2 Physical Exam: CONSTITUTIONAL: obese, vitals as above, generally deconditioned EYES: normal conjunctivae, no scleral icterus ENT: MMM Neck: erythema improved fro, prior scopolamine patch. RESPIRATORY: very limited exam as she is bedbound and very weak, unable to perform tasks requested including deep breaths. clear to auscultation bilaterally, no crackles, rales or wheezes, normal to weak respiratory effort, no overt distress and maintaining normal oxygen saturation. CARDIOVASCULAR: regular rate and rhythm, S1 and 2 heard without murmurs, gallops or rubs, no JVD, no peripheral edema GASTROINTESTINAL: normal bowel sounds, soft, nontender, nondistended MUSCULOSKELETAL: generalized weakness and deconditioning SKIN: warm and dry NEUROLOGIC: falls asleep easily but will easily awaken, cannot assess orientation as she is unable to follow instructions. Results & Data Medications Administered Current Inpatient Medications Bisacodyl (Dulcolax) 10 mg UT DAILY PRN PRN Reason: Constipation Stop: 04/28/19 14:15 Promethazine HCl 12.5 mg/ (Sodium Chloride) 50.5 mls @ 202 mls/hr IV Q6H PRN PRN Reason: Nausea And Vomiting Stop: 04/28/19 05:59 Ceftriaxone Sodium 2,000 mg/ (Dextrose) 70 mls @ 100 mls/hr IV Q24H [facility]; Protocol Stop: 04/08/19 05:59 Last Infusion: 03/31/19 06:06 Dose: Infused Documented by: Acetaminophen (Ofirmev) 65 mls @ 200 mls/hr IV Q8H PRN PRN Reason: pain/fever Stop: 04/28/19 17:29 Last Infusion: 03/30/19 10:34 Dose: Infused Documented by: Lorazepam (Ativan) 0.5 mg in 1 mls @ 1 mls/min IV Q6H PRN PRN Reason: agitation/anxiety Stop: 04/29/19 10:10 Last Admin: 03/30/19 10:55 Dose: 1 mls/min Documented by: Miconazole Nitrate (Desenex) 1 appln EXT PRN PRN PRN Reason: Affected Skin Folds Stop: 04/28/19 07:58 Last Admin: 03/30/19 20:31 Dose: 1 appln Documented by: Morphine Sulfate (Morphine Sulfate) 2 mg IV Q4H PRN PRN Reason: Pain Stop: 04/12/19 05:59 Last Admin: 03/31/19 12:11 Dose: 2 mg Documented by: Morphine Sulfate (Roxanol) 5 mg PO Q1H PRN PRN Reason: pain or agitation Stop: 04/13/19 10:10 Last Admin: 03/31/19 10:34 Dose: 5 mg Documented by: (1) UTI (urinary tract infection) Hematuria presence: with hematuria Urinary tract infection type: acute cystitis Qualified Code(s): N30.01 - Acute cystitis with hematuria
[2019-04-01] MEDS: cefTRIAXone SODIUM 2,000 MG in DEXTROSE 5% 50 ML IV SCH (06:10)
[2019-04-01] MEDS: MoRPHine SULFATE 5 MG/0.25 ML UDP PO PRN (07:24)
[2019-04-01] MEDS ORDERED: DEXTROSE 5% 1,000 ML IV SCH (13:45)
--- NOTE | 2019-04-01 14:37 | Discharge Summary ---
Date of Service April 01, 2019 Admission HPI Per Admitting Provider History obtained from patient, [facility] [place] staff , and records. Limited history from patient given disoriented and almost nonverbal state. Medical history significant for chronic diastolic heart failure (EF 55%, TTE 2 018), hypertension, ALS as per records, possible rectovaginal fistula as per records, osteoarthritis as per records. Recent confinement last April 2018 for ambulatory dysfunction secondary to progressive ALS. Patient discharged to [facility]. 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 Pured diet recommended because of aspiration risk. Patient has been refusing her home meds the last few weeks as per records. Yesterday, patient verbalized to staff that she wanted to kill herself and that she had a plan. Patient sent to the ER for evaluation. Patient noted to be disoriented at the ER. Given IV ceftriaxone for possible UTI. Aspiration concerns from [employer] after attempt to give oral potassium replacement. Medical History as above Seen by [facility] last January 2019 outpatient for stool in the vagina since December 2018. 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 CT abdomen/pelvis IV and rectal con trast recommendation to be done at a hospital secondary to patient's comorbidities pending scheduling as per outpatient notes. Surgical History : Hysteroscopy/endometrial ablation, knee surgery, cholecystectomy, breast reduction, oophorectomy right Family History : Pancreatic cancer, TIAs Personal/Social history : Non-smoker, occasional EtOH intake, [facility]dc resident Admission Exam Per Admitting Provider GENERAL: Disoriented, occasional grunting, no respiratory distress, obese SKIN: Normal color, warm HEENT: Ecchymosis frontal area, pink palpebral conjunctivae, no ptosis, dry buccal mucosa NECK : Supple, short neck, no tenderness CHEST : Decreased breath sounds, no tenderness HEART : RRR, no obvious murmurs ABDOMEN: Some distention, nontender EXTREMITIES : Minimal LE swelling, no LE tenderness, no other conspicuous deformities noted NEUROLOGIC : incoherent, no facial asymmetry, gait and stance not assessed. Principal Diagnosis ALS Comfort care measures Discharge Data Allergies Allergy/AdvReac Type Severity Reaction Status Date / Time CARLOS Inhibitors Allergy Mild UNKNOWN Verified 03/29/19 02:33 fluconazole Allergy Unknown ON Verified 03/29/19 02:33 [facility] Consultations 03/29/19 03:35 ED Decision to Admit Stat 03/29/19 06:00 Consult Psychiatry Routine 03/29/19 11:24 Consult Palliative Care Routine Ordered Studies 03/28/19 23:59 CT head/brain wo con Urgent Hospital Course (1) ALS (amyotrophic lateral sclerosis): (2) Comfort measures only status: (3) UTI (urinary tract infection): (4) Elevated troponin: (5) Hypokalemia: (6) Hypernatremia: 63-year-old female with progressed end-stage amyotrophic lateral sclerosis presents as a transfer from the [facility] [place] out of concern for suicidal ideations. Work-up in the ER revealed low potassium and dehydrated state 2/2 inability to tolerate oral food or liquids. She was placed on medical telemetry and potassium was replaced IV along with IV fluids for rehydration efforts in the setting of an elevated sodium. Troponin was also mildly elevated and this was trended overnight. She notably had a chronically elevated troponin seen from April 2018. Initial troponin here was 0.078 and this was repeated several hours later and was 0.071. A 2D echocardiogram was performed the following day revealing no segmental left ventricular wall motion abnormalities. She had no significant valvular pathology and ejection fraction was 60-65%. Psychiatry was consulted and recommended that it was not feasible for her in her current physical condition to demonstrate active behavior that would risk significant harm or . They recommended she return [facility] [place] [facility] when medically stable. Palliative care was consulted in the setting of end-stage AL S. On hospital day 2, the palliative care team and hospitalist could not reach her sister who was her medical POA. The hospitalist was able to discuss end-of-life goals with her on hospital day 3 and transition her to comfort care status at that point. She reiterated to the Hospitalist that artificial feeding was not desired at this point. (The patient confirmed that at time of discharge.) Optimal quality of life was the goal. Intravenous potassium was stopped at that point and labwork checks were stopped. She was transitioned to the medical floor and received several doses of morphine in the form of Roxanol p.o. and IV with a goal of keeping her comfortable, yet not sedated. Speech therapy saw her multiple times and ultimately recommended a full liquid diet as she was unable to handle any type of pudding consistency. However despite multiple efforts by the certified nursing assistants to feed her, she was unable to tolerate any p.o. A scopolamine patch was removed per sister's request. A urinary tract infection with E. coli was treated with ceftriaxone for 3 days. A urinary catheter was in place for her comfort. Efforts were coordinated between case management, palliative care, the patient's sister, the patient and staff at [facility] in order to get her in with [address] [place] [address] who will be involved in her care within 24 hours of her arrival back at [facility] [place]. Prescriptions for Roxanol and Ativan for comfort were provided at time of discharge. Her physician Dr. Hampton was contacted to discuss new goals of care. Physical exam revealed a hemodynamically stable and afebrile patient who was mentating at baseline. She was able to form words enough to answer questions appropriately at this point and was oriented. Heart exam was normal and lungs were clear to auscultation however, this exam was limited in the setting of obesity and deconditioning. She was discharged in guarded condition as she was deteriorating. Total Time Total Time Spent Total Time Spent (In Minutes): 60 Total Time Includes: Examination of the Patient, Discharge Planning, Medication Reconciliation and Communication With Other Providers Discharge Plan Discharge Items Patient Disposition: Transfer [facility] Fac Reason For Visit: HYPOKALEMIA Discharge Diagnosis: ALS Comfort care measures Condition on Discharge: Fair Health Concerns: She has progressed ALS and is unable to swallow at all even if allowed to do so. She does best on full liquids, but even with this she is not able to keep up her nutrition and hydration needs orally. She declines a feeding tube. She was transitioned to Hospice/comfort care measures during this admission. Goals: Use morphine (Roxanal) as needed for any pain. Use Ativan as needed for anxiety. Comfort care measures via Hospice which is to be set up through [address] [place] [address] [facility] [place] later today. Activity: Resume your previous activity Non-emergency contact: Primary Care Provider Call non-emergency contact if: you have any medication questions, your symptoms worsen, your pain is not controlled, your pain is worsening, your pain is unusual for you, your pain is concerning for you and you have a fever Follow-up/Referrals: Alfonso Conroy [Primary Care Provider] - Diet: Full liquid Addtl Attending Provider Instructions: Please continue all medications as instructed on discharge list below. Please discontinue scopolamine patch as this is causing an allergic reaction locally from the patch, and this contributes to dry mouth and feeling of thirst. You are controlling your secretions well at this point. You are being sent back to [facility] [place] with planned quick transition to Hospice which will keep you out of the hospital and will help focus on palliative measures to keep you comfortable. It was a pleasure taking care of you! Please call if you have any questions or problems. You can reach a [facility] hospitalist on duty at [facility] 24 hours a day by calling [phone]. Take care of yourself. Ashanti Beltrán, DO [facility] Pending Studies at Discharge: No Stand-Alone Forms: My [facility] Skilled Items Patient informed of condition?: Yes DNR: Yes Discharge Level of Care: Skilled Communicable Disease: No Discharge Prognosis: Deteriorating Lines: None Urinary Catheter: Yes Medications and DC Order Prescriptions: New morphine concentrate 100 mg/5 mL (20 mg/mL) Solution 5 mg PO Q1H PRN (Reason: pain, dyspnea or agitation) Qty: 15 RF: 0 lorazepam [Ativan] 1 mg tablet 1 mg BUCCAL TID PRN (Reason: anxiety) Qty: 20 RF: 0 Continued Skin Prep Wipes Misc RF: 0 Barrier Cream 1 applic topical TID RF: 0 bisacodyl [Dulcolax (bisacodyl)] 10 mg Suppository 10 mg TN DAILY PRN (Reason: Constipation) RF: 0 Fleet Enema 19-7 gram/118 mL Enema 118 ml TN DAILY PRN (Reason: Constipation) RF: 0 Chloraseptic Throat [place] 1.4 % Aerosol,[place] 1 spray mucous membrane Q8 PRN (Reason: Sore Throat) RF: 0 Discontinued Boost 0.04 gram- 1 kcal/mL Liquid 1 ea PO .DAILY AT 1500 RF: 0 losartan [Cozaar] 50 mg Tablet 50 mg PO DAILY RF: 0 celecoxib [Celebrex] 200 mg Capsule 200 mg PO DAILY RF: 0 atorvastatin 40 mg Tablet 40 mg PO DAILY RF: 0 polyethylene glycol 3350 [Miralax] 17 gram Powder In Packet 17 g PO Q OTHER DAY RF: 0 ranitidine HCl 300 mg Tablet 150 mg PO DAILY RF: 0 ferrous sulfate 325 mg (65 mg iron) Tablet 325 mg PO WK RF: 0 aspirin [Aspirin Childrens] 81 mg Tablet,Chewable 81 mg PO DAILY RF: 0 furosemide [Lasix] 20 mg Tablet 20 mg PO DAILY RF: 0 Multi-Vitamin HP/Minerals Capsule 1 cap PO DAILY RF: 0 Stress Formula with Zinc Tablet 1 tab PO DAILY RF: 0 magnesium oxide 400 mg magnesium Tablet 400 mg PO DAILY RF: 0 acetaminophen 325 mg Tablet 650 mg PO Q6H PRN (Reason: Pain) RF: 0 acetaminophen 325 mg Tablet 650 mg PO Q8 PRN (Reason: Fever) RF: 0 sennosides-docusate sodium [Senna-S] 8.6-50 mg Tablet 1 tab PO BID RF: 0 magnesium hydroxide [Milk of Magnesia] 400 mg/5 mL Suspension 30 ml PO DAILY PRN (Reason: Constipation) RF: 0 meclizine 25 mg Tablet 25 mg PO TID PRN (Reason: Vertigo) RF: 0 scopolamine base [Transderm-Scop] 1 mg over 3 days Patch 3 Day 1 patch TRANSDERMAL Q3D RF: 0 Discharge Orders: Discharge Order (Routine); Ordered 04/01/19 Ordered By: Ashanti Beltrán Admission Data Admit Date/Time: 03/29/19 04:31 Attending Provider: Ashanti Beltrán Admit Provider: Isaías Wong Primary Care Provider: Alfonso Conroy Other Providers: Isaías Wong ; Nahun Morocho Susan H Other Interventions: Discharge Summary Assessment (RN) Last Done: 04/01/19 14:03
== END 2019-04-01 15:54 | DRG 641 ==
LOC: ED 23:37 → 2N 03-29 04:31 → 4W 03-30 11:42